=== PATIENT | female | born 1980 | race Caucasian/White ===

== ENCOUNTER 2018-06-28 16:12 | Outpatient (REF) | payer BC, SELFPAY ==
--- NOTE | 2018-06-28 16:00 | PAPFT_PTH ---
PATIENT: Christiano Santos LOC: [facility] U#:[id number] AGE/SX: 38/F ROOM: RE06/28/[address]: RODY Wheat : 1980 BED: DIS: 06/28/2018 SPEC #: [id number] RECD: 06/28/18 17:56 STATUS: NEIDA RESiomara #: [id number] HUONG: 06/28/18 16:[address]: Soha Baires DEPT: [facility] Cytology RECD BY: Kennedi Pozo ENTERED: 06/28/18 17:57 SP TYPE: PAPFT OTHR DR: Celeste Quesada Tissues: 1 - CX/ENDOCX FOR PAP SMEARS Procedures: PAP THIN PREP/UVM Screening HPV DNA PROBE Comments: [id number]
[2018-06-30 14:45] LABS: Chlamydia Result Negative; GC Result Negative; Specimen Description CERVIX
== END 2018-06-28 16:32 ==
LOC: LBN 16:12
PROVIDERS: PCP Nurse Practitioner Family; Visit Provider Nurse Practitioner Family
DX: Z11.3 Encounter for screening for infections with a predominantly sexual mode of transmission (principal); Z12.4 Encounter for screening for malignant neoplasm of cervix; Z11.51 Encounter for screening for human papillomavirus (HPV)
CPT/HCPCS: 87491; 87591; 88142; 87624

== ENCOUNTER 2018-11-24 01:41 | Outpatient (CLI) | payer BC, SELFPAY ==
[2018-11-24 07:39] LABS: Abs Immature Grans 0.08 k/cumm (0.0-0.09); Absolute Basophil Count 0.04 k/cumm (0.0-0.2); Absolute Lymphocyte Count 2.33 k/cumm (1.2-3.4); Absolute Monocyte Count 0.67 k/cumm (0.11-0.7); Absolute Neutrophil Count 6.71 k/cumm (1.2-6.7); Basophils % 0.4; HCT 43.9 % (36.0-46.0); HGB 14.7 g/dL (12.0-15.5); Immature Grans % 0.8; Lymphocytes % 23.5; Mean Corp. HGB Concentration 33.5 g/dL (32.0-36.0); Mean Corpuscular Hemoglobin 30.2 pg (27.0-33.0); Mean Corpuscular Volume 90.1 fL (80-95); Mean Platelet Volume 9.7 fL (8.0-11.0); Monocytes % 6.7; Neutrophils % 67.6; Platelet Count 262 x1000/uL (130-400); RBC 4.87 m/cumm (4.00-5.20); RBC Distribution Width 13.5 % (11.7-14.6); White Blood Cell Count 9.93 k/cumm (4.4-10.8)
[2018-11-24 09:28] LABS: ALT 27 U/L (12-78); AST 13 U/L (15-37); Albumin 3.7 g/dL (3.4-5.0); Alkaline Phosphatase 71 U/L (46-116); Anion Gap 11.5 mmol/L (3-11); BUN 10 mg/dL (7-18); Bilirubin, Total 0.5 mg/dL (0.2-1.0); CO2 24.5 mmol/L (21.0-32.0); CREATININE 0.89 mg/dL (0.55-1.02); Calcium 8.7 mg/dL (8.5-10.1); Calculated LDL 147 mg/dL; Chloride 101 mmol/L (98-107); Cholesterol 203 mg/dL (50-200); Glucose 96 mg/dL (70-100); HDL Cholesterol 42 mg/dL (40-60); Potassium 4.4 mmol/L (3.5-5.1); Sodium 137 mmol/L (136-145); TSH (W/Ref FT4) 3.73 uIU/mL (0.36-3.74); Total Protein 7.1 g/dL (6.4-8.2); Triglyceride 71 mg/dL (30-150)
== END 2018-11-24 02:01 ==
PROVIDERS: PCP Physician Assistant Medical; Visit Provider Physician Assistant Medical
DX: I10 Essential (primary) hypertension (principal)
CPT/HCPCS: 36415; 80053; 80061; 83721; 84443; 85025

== ENCOUNTER 2019-01-14 07:12 | Outpatient (CLI) | payer BC, SELFPAY ==
[2019-01-14 08:43] LABS: FREE T4 0.93 ng/dL (0.76-1.46); TSH 3.04 uIU/mL (0.36-3.74)
[2019-01-14 17:19] LABS: T3, Total 140 ng/dl (97-169)
== END 2019-01-14 07:32 ==
PROVIDERS: PCP Physician Assistant Medical; Visit Provider Physician Assistant Medical
DX: R94.6 Abnormal results of thyroid function studies (principal)
CPT/HCPCS: 36415; 84439; 84443; 84480

== ENCOUNTER 2020-01-18 21:20 | Outpatient (REF) | payer BC, SELFPAY ==
[2020-01-18 22:00] LABS: Anion Gap 11.6 mmol/L (3-11); BUN 13 mg/dL (7-18); CO2 23.4 mmol/L (21.0-32.0); CREATININE 0.79 mg/dL (0.55-1.02); Calcium 9.5 mg/dL (8.5-10.1); Chloride 105 mmol/L (98-107); Glucose 82 mg/dL (74-106); Potassium 4.1 mmol/L (3.5-5.1); Sodium 140 mmol/L (136-145); TSH (W/Ref FT4) 5.07 uIU/mL (0.36-3.74)
[2020-01-18 22:26] LABS: FREE T4 0.91 ng/dL (0.76-1.46)
== END 2020-01-18 21:40 ==
LOC: NCHCN 21:20
PROVIDERS: PCP Physician Assistant Medical; Visit Provider Physician Assistant Medical
DX: R94.6 Abnormal results of thyroid function studies (principal); I10 Essential (primary) hypertension
CPT/HCPCS: 80048; 84439; 84443

== ENCOUNTER 2020-01-25 00:56 | Outpatient (CLI) | payer BC, SELFPAY ==
--- NOTE | 2020-01-25 17:30 | DI.MAMMO_ITS ---
EXAM: MAMMO SCREENING CLINICAL HISTORY: screening TECHNIQUE: Mammograms were interpreted according to the usual protocol including computer analysis w En[employer]grion CAD system, tomosynthesis and C-view imaging. COMPARISON: Baseline examination. FINDINGS: The breasts are composed of scattered fibroglandular densities, Breast Density category B. Left breast: No suspicious masses or suspicious microcalcifications are seen. No skin thickening or abnormal axillary lymph nodes are seen. Right breast: There is a dense spiculated mass seen in the lower inner quadrant of the right breast, in the central tissue. There are suspicious appearing pleomorphic and linear calcifications seen in the medial breast extending from anterior to posterior. IMPRESSION: BI-RADS Cat 0 - Assessment Incomplete: Need additional imaging evaluation Spot compression views of the mass and spot magnification views of the calcifications are requested f or further evaluation. Breast Density - Category B, scattered fibroglandular densities. A negative radiographic report should not delay biopsy if a dominant or clinically suspicious mass is present. Up to ten percent of cancers are not identified on mammography. A negative report may reinforce clinical impression. Adenosis and dense breasts may obscure an underlying neoplasm. False positive reports average 6 to 10%. Patient will receive a letter notifying them of these results.
== END 2020-01-25 01:16 ==
PROVIDERS: PCP Physician Assistant Medical; Visit Provider Nurse Practitioner Family
DX: Z12.31 Encounter for screening mammogram for malignant neoplasm of breast (principal); R92.1 Mammographic calcification found on diagnostic imaging of breast
CPT/HCPCS: 77063; 77067

== ENCOUNTER 2020-01-31 01:18 | Outpatient (CLI) | payer BC, SELFPAY ==
--- NOTE | 2020-01-31 | DI.US_ITS ---
EXAM: MG MAMMO SCREEN CALL BACK UNI CLINICAL HISTORY: F/U MAMMO, SPICULATED MASS LOWER INNER QUAD RT BREAST,CALCIFICATIONS TECHNIQUE: Mammograms were interpreted according to the usual protocol including computer analysis w ith CAD system, tomosynthesis and C-view imaging. COMPARISON: FINDINGS: Additional mammographic views of the right breast and right breast ultrasound are interpreted in conj unction. These examinations were obtained to evaluate mass of the right breast with irregular margin s as well as suspicious clumped microcalcifications of the right breast. Additional mammographic views confirm dense irregular breast lesion with mild spiculation measuring a bout 11 millimeters in greatest diameter in the upper inner quadrant of the right breast, this is hig hly suspicious for malignancy. Additional scattered regions of linear and pleomorphic microcalcifica tion are confirmed remote to the mammographically suspicious mass, these are located both medially an d posteriorly to the aforementioned mass. Findings as described are highly suggestive of multicentri c breast carcinoma. Breast ultrasound shows a poorly defined hypoechoic lesion measuring up to about 15 millimeters in di ameter which ultrasound a graphically as at the 12 to 1 o'clock position in the right breast, this is likely to correspond to the mammographically identified mass. There is posterior acoustic shadowing . Doppler evaluation is inconclusive with little if any increased vascularity in this area. Questionable satellite nodule also seen in the 1 o'clock position measuring about 10 millimeters in d iameter. This is mildly hypoechoic. No Doppler abnormality. Poorly defined borders. IMPRESSION: Mammographic findings highly suggestive of malignancy, likely multicentric, in the upper inner quadra nt of the right breast. Biopsy recommended. Additional evaluation with breast MRI may be considered to evaluate the possibility of additional multicentric disease. BI-RADS Category 4 - Suspicious Abnormality: Biopsy should be considered Breast Density - Category B - Scattered areas of fibroglandular density
== END 2020-01-31 01:38 ==
PROVIDERS: PCP Physician Assistant Medical; Visit Provider Nurse Practitioner Family
DX: Z12.39 Encounter for other screening for malignant neoplasm of breast (principal); N63.12 Unspecified lump in the right breast, upper inner quadrant
CPT/HCPCS: 76642; 77063; 77067

== ENCOUNTER 2020-03-14 18:45 | Outpatient (REF) | payer BC, SELFPAY ==
[2020-03-14 21:21] LABS: TSH 3.13 uIU/mL (0.36-3.74)
== END 2020-03-14 19:05 ==
LOC: NCHCN 18:45
PROVIDERS: PCP Physician Assistant Medical; Visit Provider Physician Assistant Medical
DX: R94.6 Abnormal results of thyroid function studies (principal)
CPT/HCPCS: 84443

== ENCOUNTER 2020-07-02 03:43 | Outpatient (CLI) | payer OTHER, SELFPAY ==
[2020-07-02 10:16] LABS: Source Nasal/Nares
[2020-07-02 13:59] LABS: COVID-19 PCR Negative (Negative)
== END 2020-07-02 03:44 | disposition home or self-care (01) ==
LOC: LBO 03:43
PROVIDERS: PCP Physician Assistant Medical; Visit Provider Surgery
DX: Z20.822 Contact with and (suspected) exposure to COVID-19 (principal); Z01.818 Encounter for other preprocedural examination
CPT/HCPCS: 87635

== ENCOUNTER 2020-07-03 08:06 | Day surgery (SDC) | payer OTHER, SELFPAY ==
--- NOTE | 2020-07-03 | DI.RAD_ITS ---
EXAM: XR PORTABLE CHEST AP POST LINE CLINICAL HISTORY: line TECHNIQUE: 2D digital imaging was performed. COMPARISON: RF LINE PLACEMENT OR from 07/03/2020 FINDINGS: LUNGS: Clear. No pleural abnormality seen. HEART: Normal. MEDIASTINUM: Normal. BONES: Unremarkable. A port has been placed via the left subclavian. The tip lies in the lower SVC. Surgical clips are n oted over the right lower lung field. IMPRESSION: Satisfactory port placement. No acute pulmonary findings. DATA REPOSITORY: RADIATION DOSE DELIVERED:
[2020-07-03 08:29] VITALS: BP 169/99; PULSE 104; RESP 18; TEMP 36.6; O2SAT 100
[2020-07-03] MEDS: Acetaminophen 500 MG TAB 1000 MG PO (08:39)
[2020-07-03] MEDS: Lactated Ringers 1,000 ML 80 ML IV (09:00)
--- NOTE | 2020-07-03 09:16 | HPE_ITS ---
Date of service: 07/03/20 Time of Service: 09:16 Assessment and Plan Assessment and plan (1) Breast cancer, right breast: Status: Acute Assessment and plan: The pt. is seen in consultation for central venous access placement at the request of PCP for venous access. PMHx, PSHx, social habits, medications, and allergies are all reviewed in [facility]. -No problems with anesthesia or local anesthesethics in the past. Prior broken collarbone: no Prior head/neck surgery: no Pt has had a central line in the past: no Pt currently is currently undergoing chemo/XRT:no Pt has had previous central access catheter:no Pt is handed: right Line will be placed:left Right sided breast CA Review of Systems Constitutional: Negative for anorexia, weight loss, weight gain , fever , chills , sweating and fatigue . Eyes: Negative for contacts/glasses, visual disturbance, irritation , redness and icterus Ears, nose, mouth, throat, and face: Negative for hearing loss, nasal congestion, snoring, sore mouth, sore throat, hoarseness and voice change . Able to open mouth/jaw completely; no TMJ. No history of difficult airway Respiratory: Negative for cough, sputum production, hemoptysis and wheezing . Cardiovascular: Negative for chest discomfort, palpitations and lightheadedness, shortness of breathe Gastrointestinal: Negative for dysphagia , dyspepsia , nausea , vomiting , change in bowel habits , melena , diarrhea , constipation , abdominal pain and jaundice. Genitourinary:Negative for dysuria and urinary incontinence . Integument/breast: Negative for skin Rash No history of keliods/hypertrophic scarring. Hematologic/lymphatic: Negative for easy bruising , bleeding and lymphadenopathy . Not on blood thiners Musculoskeletal:Negative for myalgias, arthralgias , stiff joints, back pain and muscle weakness. Neurological: Negative for headaches, dizziness , seizures , paresthesia, gait problems and weakness. Endocrine: Negative for thyroid disease or diabetes mellitus . Allergic/Immunologic: Negative for anaphylaxis . PHYSICAL EXAM GENERAL APPEARANCE: Alert, healthy appearance, oriented, in no acute distress SKIN: No hyperpigmentation, vitiligo, or suspicious lesions HYDRATION: Well hydrated HEAD, EYES, EARS, NECK, AND THROAT: Head is normocephalic, pupils equal, round, reactive to light and accommodation, ocular movement intact, sclera clear and no jaundice. Dentition intact. NECK: Supple, no lymphadenopathy, no thyromegaly. Trachea midline. LUNGS: normal respiration, clear to auscultation HEART: Regular rate and rhythm, normal heart sounds, no murmur EXTREMITY: No edema or cyanosis, foot pulses intact ABDOMEN: No hepatosplenomegaly, non tender to palpation, no masses or distention, no hernias. Normal bowel sounds. NEURO: CN: Intact. Sensory motor grossly intact. No gait disturbances. All associated labs and radiologic studies are reviewed in [facility] I discussed placing a vascular access device with the pt and S.O./family, and the alternatives to the procedure. We discussed what the port would look like, and how to take care of the port at home and the limitations that it does impose on lifestyle. We discussed that is does need to be flushed monthly when not being actively used. We discussed how the tube is placed in surgery and how it is removed. We discussed daily maintenance and care. Care of the port was also reviewed in detailed. Risk of port placement include but are not limited to: Bleeding, infection, damage to vein, artery, nerve or lung, aspiration and pneumonia, respiratory distress or airway obstruction, complications of anesthesia. If pneumothorax occurs, may need to have a chest tube. The lines can become thrombosed and may need to be changed periodically. The pt was receive pre-op hydration and antibiotics. The patient should be off asa/NSAID/coumadin/Plavix/anticoagulants prior to the exam. History of Present Illness Consults Consult date: 07/03/20 Narrative: Right sided breast cancer. s/p b/l mastectomy and reconstruction. Ready to start chemo. No xrt. non smoker. R sided. No numbness or swelling in arm [facility] Medical History (Updated 07/03/20 @ 09:17 by Aleshia Mujica DO) Breast cancer History of asthma IUD surveillance (12/04/15) removed per patient. Personal history of cervical dysplasia (05/23/11) 1998 ANTON III Surgical History Cervical Procedure LEEP 1998 section (~1997) Cholecystectomy (~2004) H/O partial mastectomy Family History Mother Hyperlipidemia Father Heart disease Social History (Updated 06/28/18 @ 16:07 by Soha Baires NP) Smoking/Tobacco Use Status: Current every day Tobacco Type: cigarettes Quit status: considering quitting Counseling given: other (informed on Quit program) Smoking risk assessment performed?: Yes Alcohol Intake: never Substance use type: does not use current occupation: [employer] Do you feel safe at home: Yes Do you feel safe in your relationship?: Yes Female Reproductive History Menstrual control method: progesterone injection History History 2 Para 2 Hx # Term Pregnancies Multiple births Hx # Pregnancies Ectopic pregnancies AB induced Hx Number of Living Children AB spontaneous Meds Home Medications and Allergies Allergies Allergy/AdvReac Type Severity Reaction Status Date / Time bupropion AdvReac Mild HEADACHE Verified 07/03/20 08:39 Home Medications Medication Instructions Recorded Confirmed Type lisinopril 10 mg tablet 10 mg PO DAILY 01/03/20 07/03/20 History levothyroxine 25 mcg tablet 25 mcg PO DAILY 01/31/20 07/03/20 History eypkpsnmexg-ezemkmuzs-asqvurwn 1 inh INHALATION DAILY 07/02/20 07/03/20 History [Trelegy Ellipta] ibuprofen 200 mg PO Q6H PRN 07/02/20 07/03/20 History tamoxifen 20 mg PO DAILY 07/02/20 07/03/20 History Results Last Vital Signs Temp 36.6 C 07/03/20 08:29 Pulse 104 H 07/03/20 08:29 Resp 18 07/03/20 08:29 BP 169/99 H 07/03/20 08:29 Pulse Ox 100 07/03/20 08:29 COVID-19 Screening Have you, or household traveled for leisure in last 14 days?: No Had IN PERSON contact w/suspected or confirmed C-19 person: No
[2020-07-03] MEDS: ceFAZolin 2 GM/50 ML BAG IVPB (11:04)
--- NOTE | 2020-07-03 11:25 | DI.RAD_ITS ---
EXAM: RF LINE PLACEMENT OR CLINICAL HISTORY: chemotherapy. TECHNIQUE: 2D and realtime digital imaging was performed. COMPARISON: No exams were available for comparison FINDINGS: Hard copy image shows placement of a central venous catheter via the left subclavian. The tip projec ts in the lower SVC. Please see procedure note for details. RADIATION DOSE DELIVERED: Fluoro time 3.1 seconds. Fluoro dose 0.53 mGy.
[2020-07-03] MEDS: Normal Saline 50 ML 10 ML (11:27)
[2020-07-03] MEDS: Heparin 500 UNITS/5 ML SYRINGE (11:27)
[2020-07-03] MEDS: Ketorolac 15 MG/ML VIAL IVP (12:07)
[2020-07-03 12:23] VITALS: BP 133/65; PULSE 83; RESP 16; TEMP 36.6; O2SAT 98
--- NOTE | 2020-07-03 12:33 | W.PM.DSUDISC ---
Discharge Plan Disposition Patient Disposition: HOME Condition: Good Discharge Details Reason For Visit: left power port Attending Provider: Aleshia Mujica Primary Care Provider: Paula Guthrie Home Meds and New Rx's Prescriptions: No Action levothyroxine 25 mcg tablet 25 mcg PO DAILY RF: 0 lisinopril 10 mg tablet 10 mg PO DAILY RF: 0 tamoxifen 20 mg Tablet 20 mg PO DAILY RF: 0 Trelegy Ellipta 100-62.5-25 mcg Blister With Device 1 inh INHALATION DAILY RF: 0 ibuprofen 200 mg Capsule 200 mg PO Q6H PRNRF: 0 Discharge Instructions Activity:: see above Remove Dressings/Wound Care:: 24 hours Shower/Bathe:: 24 hours Diet:: As Tolerated Discharge Orders Discharge Orders: Discharge Order (Routine); Ordered 07/03/20 Ordered By: Aleshia Mujica DS: Diagnosis Discharge Diagnosis (1) Breast cancer, right breast: Status: Acute
[2020-07-03 12:49] VITALS: BP 143/58; PULSE 82; RESP 16; TEMP 36.5; O2SAT 100
--- NOTE | 2020-07-03 19:47 | ROE_ITS ---
Date of service: 07/03/20 Time of Service: 11:00 Operative Note Operative Note DATE OF PROCEDURE: 07/03/20 PRE-OP DIAGNOSIS: r breast cancer /need for central venous access for chemo POST-OP DIAGNOSIS: other PROCEDURE: left power port palcement - subclavian SURGEON: Aleshia Mujica ANESTHESIA TYPE: Local By Surgeon and General:No Airway Refer to Anesthesia Record ESTIMATED BLOOD LOSS: 3 PATHOLOGY: none sent Patient was transported to: same day Procedure Description: CONSENT: Indications, risks, and benefits were explained at length. Informed consent is obtained from the patient explaining the risk, benefits and alternatives to the procedure including but not limited to: bleeding/infection/ PTX/damage to vein/artery/nerve (requiring further surgery), reaction to anesthesia, thrombosis or infection requiring removal, scarring, and other untold complications PROCEDURE SUMMARY: The patient is brought to the operative suite, and placed in the supine position. The patient is prepped and draped in the usual sterile fashion. She did receive preOp antibiotic. A time out was performed. The patient was placed in Trendelenburg position. The left chest region was prepped using chlorhexidine scrub and draped in sterile fashion using a full drape and sterile probe cover employed. Anesthesia was achieved with 30cc 1% lidocaine. The introducer needle was inserted approximately two centimeters lateral to and 1 cm inferior to the normal curvature of the patient's clavicle. Venous blood was withdrawn. The syringe was removed and a guidewire was advanced into the introducer needle. A small incision was made at the skin surface with a scalpel and the introducer needle was exchanged for a dilator and sheath over the guidewire. Proper positioning was ensured w/ fluoroscopy. After appropriate dilation was obtained, the dilator and guidewire are exchanged over the wire for a power port catheter. The dilator and guidewire are removed. Proper positioning is again assured by fluoroscopy. The tear away sheath is than removed. The incision is than extended w/ a #12 blade to create a 1? incision that encompasses the catheter. I subcutaneous pocket is created using Metzenbaum scissors. Electrocautery is used to provide hemostasis. The catheter is attached to the hub and secured. The hub is sewn to the anterior chest wall using 2-0 prolene. There is no bleeding at the time of closure. The pocket is irrigated. The catheter is accessed. There is dark red venous return of blood. The catheter is flushed w/ heparinized saline per protocol. The incision is closed with 2-0 moncryl in two layers. Steri tapes and sterile pressure dressings are applied. The patient tolerated the procedure without any hemodynamic compromise. Post- procedure chest x-ray is pending at this time. The patient tolerated the procedure well without complication and transferred to the recovery room in stable condition.
== END 2020-07-03 13:15 | disposition home or self-care (01) ==
PROVIDERS: PCP Physician Assistant Medical; Visit Provider Surgery
PROC: (CPT 36561; principal; 2020-07-03 10:45)
DX: C50.911 Malignant neoplasm of unspecified site of right female breast (principal)
CPT/HCPCS: 36561; 71045; 77001; 81025; 99221; C1788; J0690; J1885; J2001; J2250; J2704

== ENCOUNTER 2020-07-04 02:30 | Outpatient (RCR) | payer OTHER, SELFPAY ==
[2020-07-04] MEDS: Normal Saline Flush 10 ML SYR IVP (08:40)
[2020-07-04 08:56] LABS: Abs Immature Grans 0.04 10^3/uL (0.0-0.06); Absolute Basophil Count 0.05 10^3/uL (0.0-0.2); Absolute Eosinophil Count 0.05 10^3/uL (0.0-0.7); Basophils % 0.5; Eosinophils % 0.5; HCT 40.2 % (36.0-46.0); HGB 13.5 g/dL (11.2-15.7); Immature Grans % 0.4; Lymphocytes % 23.1; MCH 30.1 pg (27.0-33.0); MCHC 33.6 % (32.0-36.0); MCV 89.5 fL (80-95); MPV 9.5 fL (8.0-11.0); Monocytes % 5.2; Neutrophils % 70.3; Nucleated RBC 0 %; Platelet Count 229 10^3/uL (130-400); RBC 4.49 10^6/uL (3.93-5.22); RDW 12.7 % (11.7-14.6); RDW-SD 41.7 fL; WBC 9.54 10^3/uL (4.4-10.8)
[2020-07-04 09:20] LABS: ALT 33 U/L (14-59); AST 16 U/L (15-37); Albumin 3.9 g/dL (3.4-5.0); Alkaline Phosphatase 65 U/L (46-116); Anion Gap 10.6 mmol/L (3-11); BUN 9 mg/dL (7-18); Bilirubin, Total 0.5 mg/dL (0.2-1.0); CO2 24.4 mmol/L (21.0-32.0); CREATININE 0.9 mg/dL (0.55-1.02); Calcium 8.8 mg/dL (8.5-10.1); Chloride 102 mmol/L (98-107); Glucose 121 mg/dL (74-106); Potassium 3.8 mmol/L (3.5-5.1); Sodium 137 mmol/L (136-145); Total Protein 7.6 g/dL (6.4-8.2)
== END 2020-07-04 23:59 | disposition home or self-care (01) ==
LOC: INF 02:30
PROVIDERS: PCP Physician Assistant Medical; Visit Provider Internal Medicine Medical Oncology
DX: C50.911 Malignant neoplasm of unspecified site of right female breast (principal); Z17.0 Estrogen receptor positive status [ER+]; Z45.2 Encounter for adjustment and management of vascular access device
CPT/HCPCS: 36591; 80053; 85025

== ENCOUNTER 2020-07-31 02:36 | Outpatient (RCR) | payer OTHER, SELFPAY ==
[2020-07-17] MEDS: Normal Saline Flush 10 ML SYR IVP (10:22)
[2020-07-17 10:25] LABS: HCT 37.4 % (36.0-46.0); HGB 12.6 g/dL (11.2-15.7); MCH 30.3 pg (27.0-33.0); MCHC 33.7 % (32.0-36.0); MCV 89.9 fL (80-95); MPV 9.2 fL (8.0-11.0); Nucleated RBC 0 %; RBC 4.16 10^6/uL (3.93-5.22); RDW 12.3 % (11.7-14.6); RDW-SD 39.4 fL; WBC 9.17 10^3/uL (4.4-10.8)
[2020-07-17 10:44] LABS: ALT 29 U/L (14-59); AST 14 U/L (15-37); Albumin 3.9 g/dL (3.4-5.0); Alkaline Phosphatase 81 U/L (46-116); Anion Gap 8.8 mmol/L (3-11); BUN 6 mg/dL (7-18); CO2 27.2 mmol/L (21.0-32.0); CREATININE 0.8 mg/dL (0.55-1.02); Calcium 8.8 mg/dL (8.5-10.1); Chloride 104 mmol/L (98-107); Glucose 103 mg/dL (74-106); Sodium 140 mmol/L (136-145); Total Protein 7.5 g/dL (6.4-8.2)
[2020-07-17 10:54] LABS: Absolute Lymphocyte Count 2.66 10^3/uL (1.2-3.4); Absolute Monocyte Count 0.28 10^3/uL (0.1-0.8); Absolute Neutrophil Count 4.31 10^3/uL (1.2-6.7); Atypical Lymphocytes % 4; Bands % 9; Bilirubin, Total < 0.1 mg/dL (0.2-1.0)
[2020-07-17 10:55] LABS: Diff Comment Manual Differential; Metamyelocytes % 3; Myelocytes % 17; Platelet Count 215 10^3/uL (130-400); Promyelocytes % 1
[2020-07-17 10:56] LABS: Polychromasia Present
[2020-07-31] MEDS: Normal Saline Flush 10 ML SYR IVP (10:31)
[2020-07-31 10:32] LABS: Abs Immature Grans 2.78 10^3/uL (0.0-0.06); HCT 36.7 % (36.0-46.0); MCH 29.5 pg (27.0-33.0); MCHC 32.7 % (32.0-36.0); MCV 90.2 fL (80-95); MPV 8.6 fL (8.0-11.0); Nucleated RBC 0 %; Platelet Count 190 10^3/uL (130-400); RBC 4.07 10^6/uL (3.93-5.22); RDW-SD 40.7 fL; WBC 10.42 10^3/uL (4.4-10.8)
[2020-07-31 10:58] LABS: Absolute Basophil Count 0.21 10^3/uL (0.0-0.2); Absolute Lymphocyte Count 2.61 10^3/uL (1.2-3.4); Absolute Monocyte Count 1.35 10^3/uL (0.1-0.8); Absolute Neutrophil Count 4.79 10^3/uL (1.2-6.7); Bands % 3; Metamyelocytes % 4; Myelocytes % 8; Promyelocytes % 1
[2020-07-31 10:59] LABS: Diff Comment Manual Differential; Polychromasia Present
[2020-07-31 11:00] LABS: ALT 30 U/L (14-59); AST 17 U/L (15-37); Albumin 3.8 g/dL (3.4-5.0); Alkaline Phosphatase 84 U/L (46-116); Anion Gap 11.9 mmol/L (3-11); BUN 6 mg/dL (7-18); Bilirubin, Total 0.1 mg/dL (0.2-1.0); CO2 24.1 mmol/L (21.0-32.0); CREATININE 0.8 mg/dL (0.55-1.02); Calcium 8.9 mg/dL (8.5-10.1); Chloride 102 mmol/L (98-107); Glucose 122 mg/dL (74-106); Potassium 3.8 mmol/L (3.5-5.1); Sodium 138 mmol/L (136-145); Total Protein 7.3 g/dL (6.4-8.2)
== END 2020-08-03 23:59 | disposition home or self-care (01) ==
LOC: INF 02:36
PROVIDERS: PCP Physician Assistant Medical; Visit Provider Internal Medicine Medical Oncology
DX: C50.911 Malignant neoplasm of unspecified site of right female breast (principal); Z17.0 Estrogen receptor positive status [ER+]; Z45.2 Encounter for adjustment and management of vascular access device
CPT/HCPCS: 36591; 80053; 85025

== ENCOUNTER 2020-08-28 02:46 | Outpatient (RCR) | payer OTHER, SELFPAY ==
[2020-08-20] MEDS: Normal Saline Flush 10 ML SYR IVP (15:06)
[2020-08-20] MEDS: Heparin 500 UNITS/5 ML SYRINGE IV (15:06)
[2020-08-20 15:10] LABS: Abs Immature Grans 0.28 10^3/uL (0.0-0.06); Absolute Eosinophil Count 0.08 10^3/uL (0.0-0.7); Absolute Lymphocyte Count 1.92 10^3/uL (1.2-3.4); Absolute Monocyte Count 1.15 10^3/uL (0.1-0.8); Absolute Neutrophil Count 8.61 10^3/uL (1.2-6.7); Basophils % 0.8; Eosinophils % 0.7; HGB 11.2 g/dL (11.2-15.7); Immature Grans % 2.3; Lymphocytes % 15.8; MCH 30.2 pg (27.0-33.0); MCHC 32.9 % (32.0-36.0); MCV 91.6 fL (80-95); Monocytes % 9.5; Neutrophils % 70.9; Nucleated RBC 0 %; Platelet Count 272 10^3/uL (130-400); RBC 3.71 10^6/uL (3.93-5.22); RDW 15.5 % (11.7-14.6); RDW-SD 51.4 fL; WBC 12.14 10^3/uL (4.4-10.8)
[2020-08-20 15:24] LABS: ALT 38 U/L (14-59); AST 24 U/L (15-37); Albumin 3.7 g/dL (3.4-5.0); Alkaline Phosphatase 66 U/L (46-116); Anion Gap 8.4 mmol/L (3-11); BUN 5 mg/dL (7-18); Bilirubin, Total 0.2 mg/dL (0.2-1.0); CO2 25.6 mmol/L (21.0-32.0); CREATININE 0.8 mg/dL (0.55-1.02); Calcium 8.4 mg/dL (8.5-10.1); Chloride 106 mmol/L (98-107); Glucose 97 mg/dL (74-106); Potassium 3.8 mmol/L (3.5-5.1); Sodium 140 mmol/L (136-145)
== END 2020-09-03 23:59 | disposition home or self-care (01) ==
LOC: INF 02:46
PROVIDERS: PCP Physician Assistant Medical; Visit Provider Internal Medicine Medical Oncology
DX: C50.911 Malignant neoplasm of unspecified site of right female breast (principal); Z17.0 Estrogen receptor positive status [ER+]; Z45.2 Encounter for adjustment and management of vascular access device
CPT/HCPCS: 36591; 80053; 85025

== ENCOUNTER 2020-08-30 01:22 | Outpatient (CLI) | payer OTHER, SELFPAY ==
--- NOTE | 2020-08-30 | DI.US_ITS ---
APPROVED REPORT EXAM: Comprehensive 2D, Doppler, and color-flow Echocardiogram Patient Location: Out-Patient Telephone Cleaner: Nancy Galvan RDCS (AE) Indications: Right breast cancer, Chemotherapy Other Information Study Quality: Adequate Conclusion Left Ventricle : The left ventricle is normal size. The left ventricular systolic function is normal. The left ventricular ejection fraction is within the normal range. There is normal left ventricular wall thickness. There is normal LV segmental wall motion. The left ventricular diastolic function is normal. LVEF is 59%. Global longitudinal strain is -16.5%. Right Ventricle : The right ventricle is normal size. The right ventricular systolic function is norm al. The RVSP is 29.6 mmHg. Atria : The left atrium size is normal. The right atrium size is normal. Mitral Valve : The mitral valve is normal in structure. Trace to mild mitral regurgitation. No eviden ce of mitral valve stenosis. Great Vessels : The aortic root is normal in size. The ascending aorta is normal in size. Aortic arch is not well visualized. IVC is normal in size and collapses >50% with inspiration. Please see remainder of study for further details. Wall motion Left Ventricle The left ventricle is normal size. The left ventricular systolic function is normal. The left ventric ular ejection fraction is within the normal range. There is normal left ventricular wall thickness. T here is normal LV segmental wall motion. The left ventricular diastolic function is normal. There is no ventricular septal defect visualized. LVEF is 59%. Global longitudinal strain is -16.5%. Right Ventricle The right ventricle is normal size. The right ventricular systolic function is normal. The RVSP is 29 .6 mmHg. Atria The left atrium size is normal. The right atrium size is normal. The interatrial septum is intact wit h no evidence for an atrial septal defect. Aortic Valve The aortic valve is normal in structure. Aortic valve is trileaflet. There is no aortic valvular sten osis. No aortic regurgitation is present. Mitral Valve The mitral valve is normal in structure. No evidence of mitral valve stenosis. Trace to mild mitral r egurgitation. Tricuspid Valve The tricuspid valve is normal in structure. There is no tricuspid valve stenosis. Trace tricuspid reg urgitation. Pulmonic Valve The pulmonary valve is normal in structure. There is no pulmonic valvular stenosis. There is no pulmo kely valvular regurgitation. Great Vessels The aortic root is normal in size. The ascending aorta is normal in size. Aortic arch is not well vis ualized. IVC is normal in size and collapses >50% with inspiration. Pericardium There is no pericardial effusion. 2D Dimensions IVSD d PLAX 0.83 cm F: 0.6-1.0 LV Vol A2C d MOD 97.0 mL LVPW d PLAX 0.88 cm F: 0.6 - 1.0 LV Vol A4C d MOD 118.9 mL LVID d PLAX 5.16 cm F: 3.8 - 5.2 LA vol/ BSA A4C s A-L 29.3 mL/m2 LVDs 3.45 cm F: 2.2 - 3.5 LA Area A4C s MOD 21.01 cm2 Ao Root d 2.61 cm F: 2.7 - 3.3 LV EF A4C MOD 59.5 % RA Area A4C 12.74 cm2 LV EF A2C MOD 59.8 % RA Vol/ BSA A4C s A-L 14.4 mL/m2 LV EF Biplane MOD 59.1 % Ao Asc Diam d 3.09 cm F: 2.3 - 3.1 SV 65.43 mL LV EF Teichholz 61.1 % SV Index 29.85 mL/m2 LVEF (Lambert's) 59.12 % F: 54 - 74 LV Volume 80.58 mL F: 46 - 106 LV Volume Index 36.79 mL/m2 F: 29 - 61 LV Vol Biplane MOD 110.7 mL FS 32.90 % M-Mode TAPSE 2.55 cm (M/F) >1.7 LV Diastology MV E' medial 0.113 (>0.07 m/s) E/A Ratio 1.1 LV E/e MED 7.30 (<14) MV E Vmax 0.83 (0.4-1.3 m/s) MV E' lateral 0.119 (>0.1 m/s) MV A Vmax 0.75 (0.4-1.3 m/s) LV E/e LAT 6.95 (<14) MV E/A Ratio 1.08 MV E/E' medial 7.34 MV E/E' lateral 6.98 Aortic Valve LVOT Area 3.01 cm2 AoV Area Vmax 2.44 cm2 LVOT Vmax 1.17 m/s AoV Area/ BSA (Vmax) 1.11 cm2/m2 LVOT Mean Scooby. 0.79 m/s DANNY Mean Scooby. 2.42 cm2 LVOT Peak Grad 5.5 mmHg DANNY Mean Scooby. Index 1.10 cm2/m2 LVOT Mean Grad 2.9 mmHg LVOT VTI 0.234 m LVOT Diam s 1.95 cm AoV Vmax 1.44 m/s Velocity Ratio 0.81 AoV Mean Scooby. 0.98 m/s AoV Peak Grad 8.3 mmHg LVOT SV 70.44 mL AoV Mean Grad 4.6 mmHg AoV VTI 0.246 m AoV Area VTI 2.86 cm2 AoV Area/ BSA (VTI) 1.31 cm/m2 Mitral Valve MV DT 196 (160-240 msec) MV PHT 57 msec MV Area PHT 3.87 cm2 MV VTI 0.248 m MV VTI Annulus 0.244 m MV Area VTI 2.80 (4.0-6.0 cm2) Pulmonary Valve PV Vmax 1.26 (0.5-1.5 m/s) RVOT Peak Gr. 6.61 mmHg PV Peak Grad 6.4 mmHg RVOT Mean Gr. 3.35 mmHg PV Mean Grad 3.4 mmHg RVOT VTI 0.216 m PV VTI 0.230 m RVOT Vmax 1.29 m/s Tricuspid Valve TR Peak Grad 26.6 mmHg TR Vmax 2.58 m/s RA Pressure 3.00 mmHg RVSP (TR) 29.6 mmHg
== END 2020-08-30 01:42 ==
PROVIDERS: PCP Physician Assistant Medical; Visit Provider Nurse Practitioner Adult Health
DX: C50.911 Malignant neoplasm of unspecified site of right female breast (principal); Z17.0 Estrogen receptor positive status [ER+]; Z79.899 Other long term (current) drug therapy; K21.9 Gastro-esophageal reflux disease without esophagitis; I34.0 Nonrheumatic mitral (valve) insufficiency
CPT/HCPCS: 93306

== ENCOUNTER 2020-10-02 02:37 | Outpatient (RCR) | payer OTHER, SELFPAY ==
[2020-09-05] MEDS: Normal Saline Flush 10 ML SYR IVP (08:05)
[2020-09-05 08:09] LABS: Abs Immature Grans 0.84 10^3/uL (0.0-0.06); Absolute Eosinophil Count 0.08 10^3/uL (0.0-0.7); HCT 34.1 % (36.0-46.0); HGB 11.3 g/dL (11.2-15.7); MCH 30.5 pg (27.0-33.0); MCHC 33.1 % (32.0-36.0); MCV 92.2 fL (80-95); MPV 9.1 fL (8.0-11.0); Nucleated RBC 0 %; Platelet Count 212 10^3/uL (130-400); RDW 16.3 % (11.7-14.6); RDW-SD 54.4 fL; WBC 8.09 10^3/uL (4.4-10.8)
[2020-09-05 08:23] LABS: ALT 29 U/L (14-59); AST 13 U/L (15-37); Albumin 3.6 g/dL (3.4-5.0); Alkaline Phosphatase 81 U/L (46-116); Anion Gap 9.2 mmol/L (3-11); BUN 8 mg/dL (7-18); Bilirubin, Total 0.2 mg/dL (0.2-1.0); CO2 25.8 mmol/L (21.0-32.0); CREATININE 0.8 mg/dL (0.55-1.02); Calcium 9.1 mg/dL (8.5-10.1); Chloride 106 mmol/L (98-107); Glucose 104 mg/dL (74-106); Potassium 4.2 mmol/L (3.5-5.1); Sodium 141 mmol/L (136-145); Total Protein 7.1 g/dL (6.4-8.2)
[2020-09-05 08:28] LABS: Absolute Basophil Count 0.08 10^3/uL (0.0-0.2); Absolute Monocyte Count 1.05 10^3/uL (0.1-0.8); Absolute Neutrophil Count 4.61 10^3/uL (1.2-6.7); Bands % 4; Diff Comment Manual Differential; Metamyelocytes % 2; Myelocytes % 5
[2020-09-05 08:29] LABS: Polychromasia Present
[2020-09-18 09:08] LABS: HCT 34.4 % (36.0-46.0); HGB 11.3 g/dL (11.2-15.7); MCH 30.7 pg (27.0-33.0); MCHC 32.8 % (32.0-36.0); MCV 93.5 fL (80-95); MPV 9.7 fL (8.0-11.0); Nucleated RBC 0 %; Platelet Count 193 10^3/uL (130-400); RBC 3.68 10^6/uL (3.93-5.22); RDW 17.3 % (11.7-14.6); RDW-SD 57.6 fL; WBC 16.64 10^3/uL (4.4-10.8)
[2020-09-18] MEDS: Normal Saline Flush 10 ML SYR IVP (09:15)
[2020-09-18 09:29] LABS: ALT 53 U/L (14-59); AST 23 U/L (15-37); Albumin 3.8 g/dL (3.4-5.0); Alkaline Phosphatase 119 U/L (46-116); Anion Gap 11.1 mmol/L (3-11); BUN 11 mg/dL (7-18); Bilirubin, Total 0.3 mg/dL (0.2-1.0); CO2 24.9 mmol/L (21.0-32.0); CREATININE 0.9 mg/dL (0.55-1.02); Calculated LDL 154 mg/dL (<100); Chloride 104 mmol/L (98-107); Cholesterol 230 mg/dL (<200); Glucose 111 mg/dL (74-106); HDL Cholesterol 43 mg/dL (40-60); Potassium 4.1 mmol/L (3.5-5.1); Sodium 140 mmol/L (136-145); TSH 2.12 uIU/mL (0.36-3.74); Total Protein 7.5 g/dL (6.4-8.2); Triglyceride 168 mg/dL (<150)
[2020-09-18 09:31] LABS: Absolute Lymphocyte Count 1.33 10^3/uL (1.2-3.4); Absolute Monocyte Count 0.83 10^3/uL (0.1-0.8); Absolute Neutrophil Count 13.81 10^3/uL (1.2-6.7); Bands % 8; Diff Comment Manual Differential; Metamyelocytes % 4; RBC Morphology Normal
[2020-10-02] MEDS: Normal Saline Flush 10 ML SYR IVP (08:53)
[2020-10-02 08:55] LABS: Abs Immature Grans 0.41 10^3/uL (0.0-0.06); Absolute Basophil Count 0.08 10^3/uL (0.0-0.2); Absolute Eosinophil Count 0.19 10^3/uL (0.0-0.7); Absolute Lymphocyte Count 1.34 10^3/uL (1.2-3.4); Absolute Monocyte Count 0.69 10^3/uL (0.1-0.8); Basophils % 0.7; Eosinophils % 1.7; HCT 34.6 % (36.0-46.0); HGB 11.5 g/dL (11.2-15.7); Immature Grans % 3.6; Lymphocytes % 11.9; MCH 31.2 pg (27.0-33.0); MCHC 33.2 % (32.0-36.0); MCV 93.8 fL (80-95); MPV 9.3 fL (8.0-11.0); Monocytes % 6.1; Nucleated RBC 0 %; Platelet Count 230 10^3/uL (130-400); RBC 3.69 10^6/uL (3.93-5.22); RDW 16.8 % (11.7-14.6); RDW-SD 57.1 fL; WBC 11.27 10^3/uL (4.4-10.8)
[2020-10-02 08:57] LABS: Absolute Neutrophil Count 8.57 10^3/uL (1.2-6.7)
[2020-10-02 09:24] LABS: ALT 40 U/L (14-59); AST 21 U/L (15-37); Albumin 3.8 g/dL (3.4-5.0); Alkaline Phosphatase 96 U/L (46-116); BUN 9 mg/dL (7-18); Bilirubin, Total 0.4 mg/dL (0.2-1.0); CREATININE 0.9 mg/dL (0.55-1.02); Calcium 9.3 mg/dL (8.5-10.1); Chloride 106 mmol/L (98-107); Glucose 103 mg/dL (74-106); Potassium 4.4 mmol/L (3.5-5.1); Sodium 142 mmol/L (136-145); Total Protein 7.5 g/dL (6.4-8.2)
== END 2020-10-03 23:59 | disposition home or self-care (01) ==
LOC: INF 02:37
PROVIDERS: PCP Physician Assistant Medical; Visit Provider Internal Medicine Medical Oncology
DX: C50.911 Malignant neoplasm of unspecified site of right female breast (principal); Z17.0 Estrogen receptor positive status [ER+]; Z45.2 Encounter for adjustment and management of vascular access device
CPT/HCPCS: 36591; 80053; 80061; 84443; 85025

== ENCOUNTER 2020-10-16 02:55 | Outpatient (RCR) | payer OTHER, SELFPAY ==
[2020-10-16] MEDS: Normal Saline Flush 10 ML SYR IVP (09:41)
[2020-10-16 10:06] LABS: Abs Immature Grans 1.15 10^3/uL (0.0-0.06); HCT 34.7 % (36.0-46.0); HGB 11.2 g/dL (11.2-15.7); MCH 31.6 pg (27.0-33.0); MCHC 32.3 % (32.0-36.0); MPV 9.9 fL (8.0-11.0); Nucleated RBC 0 %; Platelet Count 217 10^3/uL (130-400); RBC 3.54 10^6/uL (3.93-5.22); RDW 15.9 % (11.7-14.6); RDW-SD 57.6 fL; WBC 15.92 10^3/uL (4.4-10.8)
[2020-10-16 10:24] LABS: ALT 36 U/L (14-59); AST 13 U/L (15-37); Albumin 3.7 g/dL (3.4-5.0); Alkaline Phosphatase 105 U/L (46-116); Anion Gap 10.7 mmol/L (3-11); BUN 8 mg/dL (7-18); Bilirubin, Total 0.2 mg/dL (0.2-1.0); CO2 24.3 mmol/L (21.0-32.0); CREATININE 0.8 mg/dL (0.55-1.02); Calcium 9.2 mg/dL (8.5-10.1); Chloride 105 mmol/L (98-107); Glucose 106 mg/dL (74-106); Potassium 4.2 mmol/L (3.5-5.1); Sodium 140 mmol/L (136-145); Total Protein 7.3 g/dL (6.4-8.2)
[2020-10-16 10:25] LABS: Absolute Eosinophil Count 0.16 10^3/uL (0.0-0.7); Absolute Lymphocyte Count 2.71 10^3/uL (1.2-3.4); Absolute Neutrophil Count 11.46 10^3/uL (1.2-6.7); Atypical Lymphocytes % 2
[2020-10-16 10:26] LABS: Diff Comment Manual Differential; Metamyelocytes % 2; Myelocytes % 3; Polychromasia Present
== END 2020-11-03 23:59 | disposition home or self-care (01) ==
LOC: INF 02:55
PROVIDERS: PCP Physician Assistant Medical; Visit Provider Internal Medicine Medical Oncology
DX: C50.911 Malignant neoplasm of unspecified site of right female breast (principal); Z17.0 Estrogen receptor positive status [ER+]; Z45.2 Encounter for adjustment and management of vascular access device
CPT/HCPCS: 36591; 80053; 85025

== ENCOUNTER 2020-12-11 12:53 | Outpatient (RCR) | payer OTHER, SELFPAY ==
[2020-12-11] MEDS: Heparin 500 UNITS/5 ML SYRINGE IV (13:40)
[2020-12-11] MEDS: Normal Saline Flush 10 ML SYR IVP (13:40)
[2020-12-11 13:50] LABS: Abs Immature Grans 0.02 10^3/uL (0.0-0.06); Absolute Basophil Count 0.05 10^3/uL (0.0-0.2); Absolute Eosinophil Count 0.11 10^3/uL (0.0-0.7); Absolute Lymphocyte Count 1.91 10^3/uL (1.2-3.4); Absolute Monocyte Count 0.65 10^3/uL (0.1-0.8); Basophils % 0.5; Eosinophils % 1.2; HGB 13.1 g/dL (11.2-15.7); Immature Grans % 0.2; Lymphocytes % 20.9; MCH 30.3 pg (27.0-33.0); MCHC 32.8 % (32.0-36.0); MCV 92.6 fL (80-95); MPV 9.5 fL (8.0-11.0); Monocytes % 7.1; Neutrophils % 70.1; Nucleated RBC 0 %; Platelet Count 238 10^3/uL (130-400); RBC 4.32 10^6/uL (3.93-5.22); RDW 11.7 % (11.7-14.6); RDW-SD 39.8 fL; WBC 9.14 10^3/uL (4.4-10.8)
[2020-12-11 14:02] LABS: ALT 51 U/L (14-59); AST 29 U/L (15-37); Alkaline Phosphatase 76 U/L (46-116); Anion Gap 10.1 mmol/L (3-11); BUN 10 mg/dL (7-18); Bilirubin, Total 0.2 mg/dL (0.2-1.0); CO2 25.9 mmol/L (21.0-32.0); CREATININE 0.8 mg/dL (0.55-1.02); Calcium 9.4 mg/dL (8.5-10.1); Chloride 104 mmol/L (98-107); Glucose 96 mg/dL (74-106); Potassium 4.2 mmol/L (3.5-5.1); Sodium 140 mmol/L (136-145); Total Protein 7.8 g/dL (6.4-8.2)
== END 2021-01-03 23:59 | disposition home or self-care (01) ==
LOC: INF 12:53
PROVIDERS: PCP Physician Assistant Medical; Visit Provider Internal Medicine Medical Oncology
DX: C50.911 Malignant neoplasm of unspecified site of right female breast (principal); Z17.0 Estrogen receptor positive status [ER+]; Z45.2 Encounter for adjustment and management of vascular access device
CPT/HCPCS: 36591; 80053; 85025

== ENCOUNTER 2021-02-12 15:10 | Outpatient (CLI) | payer OTHER, SELFPAY ==
[2021-02-12 10:26] LABS: Abs Immature Grans 0.04 10^3/uL (0.0-0.06); Absolute Basophil Count 0.04 10^3/uL (0.0-0.2); Absolute Eosinophil Count 0.06 10^3/uL (0.0-0.7); Absolute Lymphocyte Count 1.64 10^3/uL (1.2-3.4); Absolute Monocyte Count 0.39 10^3/uL (0.1-0.8); Absolute Neutrophil Count 5.67 10^3/uL (1.2-6.7); Basophils % 0.5; Eosinophils % 0.8; HCT 40.9 % (36.0-46.0); HGB 13.5 g/dL (11.2-15.7); Immature Grans % 0.5; Lymphocytes % 20.9; MCH 29.3 pg (27.0-33.0); MCV 88.7 fL (80-95); MPV 9.1 fL (8.0-11.0); Neutrophils % 72.3; Nucleated RBC 0 %; Platelet Count 214 10^3/uL (130-400); RBC 4.61 10^6/uL (3.93-5.22); RDW 12.7 % (11.7-14.6); RDW-SD 41.7 fL; WBC 7.84 10^3/uL (4.4-10.8)
[2021-02-12 10:47] LABS: Alkaline Phosphatase 60 U/L (46-116); BUN 11 mg/dL (7-18); Bilirubin, Total 0.3 mg/dL (0.2-1.0); CREATININE 0.9 mg/dL (0.55-1.02); Glucose 117 mg/dL (74-106); Sodium 143 mmol/L (136-145); Total Protein 7.6 g/dL (6.4-8.2)
[2021-02-12 10:48] LABS: ALT 34 U/L (14-59); AST 19 U/L (15-37); Anion Gap 12.6 mmol/L (3-11); CO2 26.4 mmol/L (21.0-32.0); Chloride 104 mmol/L (98-107); Potassium 3.8 mmol/L (3.5-5.1)
[2021-02-12 13:41] LABS: TSH (W/Ref FT4) 3.19 uIU/mL (0.36-3.74)
== END 2021-02-12 15:11 | disposition home or self-care (01) ==
LOC: LBO 15:11
PROVIDERS: PCP Physician Assistant Medical; Visit Provider Internal Medicine
DX: C50.911 Malignant neoplasm of unspecified site of right female breast (principal); Z17.0 Estrogen receptor positive status [ER+]; R94.6 Abnormal results of thyroid function studies
CPT/HCPCS: 36415; 80053; 84443; 85025

== ENCOUNTER 2021-02-22 01:49 | Outpatient (CLI) | payer OTHER, SELFPAY ==
--- NOTE | 2021-02-22 10:45 | DI.RAD_ITS ---
Exam(s) XR LUMBAR SPINE COMPLETE EXAM: XR LUMBAR SPINE COMPLETE CLINICAL HISTORY: LOW BACK PAIN M54.5. TECHNIQUE: 2D digital imaging was performed. COMPARISON: No exams were available for comparison FINDINGS: BONES: No fracture or destructive lesion. Vertebral bodies are unremarkable. Mild to moderate facet h ypertrophy L4-5 and L5-S1. Small endplate osteophytes greatest at L5-S1.. DISKS: Moderate to severe narrowing of the L5-S1 disc. Remaining intervertebral disc spaces are main tained. ALIGNMENT: Lumbar spinal alignment is within normal limits. SOFT TISSUE: Right upper quadrant surgical clips. Unremarkable bowel gas pattern. IMPRESSION: Degenerative changes, greatest at L5-S1. DATA REPOSITORY: RADIATION DOSE DELIVERED:
== END 2021-02-22 02:09 ==
PROVIDERS: PCP Physician Assistant Medical; Visit Provider Physician Assistant Medical
DX: M54.59 Other low back pain (principal); M51.37 Other intervertebral disc degeneration, lumbosacral region; M47.817 Spondylosis without myelopathy or radiculopathy, lumbosacral region
CPT/HCPCS: 72110

== ENCOUNTER 2021-02-25 15:04 | Outpatient (REF) | payer OTHER, SELFPAY ==
--- NOTE | 2021-02-25 14:00 | PAPFT_PTH ---
PATIENT: Christiano Santos LOC: N U#:[id number] AGE/SX: 40/F ROOM: RE02/25/[address]: RODY Wheat : 1980 BED: DIS: 02/25/2021 SPEC #: [id number] RECD: 02/25/21 18:03 STATUS: NEIDA REQ #: [id number] HUONG: 02/25/21 14:[address]: Soha Baires DEPT: [facility] Cytology RECD BY: Kennedi Pozo ENTERED: 02/25/21 18:03 SP TYPE: PAPFT OTHR DR: Paula Guthrie Tissues: 1 - CX/ENDOCX FOR PAP SMEARS Procedures: PAP THIN PREP/UVM Screening HPV DNA PROBE Comments: [id number]
== END 2021-02-25 15:05 | disposition home or self-care (01) ==
LOC: LBN 15:04
PROVIDERS: PCP Physician Assistant Medical; Visit Provider Nurse Practitioner Family
DX: Z12.4 Encounter for screening for malignant neoplasm of cervix (principal); Z11.51 Encounter for screening for human papillomavirus (HPV)
CPT/HCPCS: 88142; 87624

== ENCOUNTER 2021-05-02 03:44 | Outpatient (CLI) | payer OTHER, SELFPAY ==
[2021-05-02 16:42] LABS: Anion Gap 13.2 mmol/L (3-11); BUN 9 mg/dL (7-18); CO2 25.8 mmol/L (21.0-32.0); CREATININE 0.8 mg/dL (0.55-1.02); Calcium 9.3 mg/dL (8.5-10.1); Chloride 99 mmol/L (98-107); Glucose 101 mg/dL (74-106); Magnesium 1.8 mg/dL (1.8-2.4); Potassium 3.4 mmol/L (3.5-5.1); Sodium 138 mmol/L (136-145); TSH 1.22 uIU/mL (0.36-3.74)
== END 2021-05-02 03:45 | disposition home or self-care (01) ==
LOC: LBO 03:44
PROVIDERS: PCP Physician Assistant Medical; Visit Provider Physician Assistant Medical
DX: I10 Essential (primary) hypertension (principal); R94.6 Abnormal results of thyroid function studies
CPT/HCPCS: 36415; 80048; 83735; 84443

== ENCOUNTER 2021-05-14 02:12 | Outpatient (CLI) | payer OTHER, SELFPAY ==
[2021-05-14 12:05] LABS: Abs Immature Grans 0.05 10^3/uL (0.0-0.06); Absolute Basophil Count 0.03 10^3/uL (0.0-0.2); Absolute Eosinophil Count 0.07 10^3/uL (0.0-0.7); Absolute Lymphocyte Count 2.69 10^3/uL (1.2-3.4); Absolute Monocyte Count 0.63 10^3/uL (0.1-0.8); Absolute Neutrophil Count 6.54 10^3/uL (1.2-6.7); Basophils % 0.3; Eosinophils % 0.7; HCT 38.9 % (36.0-46.0); HGB 12.6 g/dL (11.2-15.7); Immature Grans % 0.5; Lymphocytes % 26.9; MCH 30.1 pg (27.0-33.0); MCHC 32.4 % (32.0-36.0); MCV 93.1 fL (80-95); Monocytes % 6.3; Neutrophils % 65.3; Nucleated RBC 0 %; Platelet Count 217 10^3/uL (130-400); RBC 4.18 10^6/uL (3.93-5.22); RDW-SD 44.5 fL; WBC 10.01 10^3/uL (4.4-10.8)
[2021-05-14 12:20] LABS: ALT 38 U/L (14-59); AST 22 U/L (15-37); Alkaline Phosphatase 57 U/L (46-116); Anion Gap 11.6 mmol/L (3-11); BUN 7 mg/dL (7-18); Bilirubin, Total 0.3 mg/dL (0.2-1.0); CO2 27.4 mmol/L (21.0-32.0); CREATININE 0.9 mg/dL (0.55-1.02); Calcium 9.6 mg/dL (8.5-10.1); Chloride 99 mmol/L (98-107); Glucose 105 mg/dL (74-106); Sodium 138 mmol/L (136-145); Total Protein 7.8 g/dL (6.4-8.2)
== END 2021-05-14 02:13 | disposition home or self-care (01) ==
LOC: LBO 02:12
PROVIDERS: PCP Physician Assistant Medical; Visit Provider Internal Medicine
DX: C50.911 Malignant neoplasm of unspecified site of right female breast (principal)
CPT/HCPCS: 36415; 80053; 85025

== ENCOUNTER 2021-08-13 01:52 | Outpatient (CLI) | payer OTHER, SELFPAY ==
[2021-08-13 13:08] LABS: Abs Immature Grans 0.07 10^3/uL (0.0-0.06); Absolute Basophil Count 0.04 10^3/uL (0.0-0.2); Absolute Eosinophil Count 0.04 10^3/uL (0.0-0.7); Absolute Lymphocyte Count 2.69 10^3/uL (1.2-3.4); Absolute Monocyte Count 0.52 10^3/uL (0.1-0.8); Absolute Neutrophil Count 6.37 10^3/uL (1.2-6.7); Basophils % 0.4; Eosinophils % 0.4; HCT 39.7 % (36.0-46.0); HGB 13.3 g/dL (11.2-15.7); Immature Grans % 0.7; Lymphocytes % 27.6; MCH 30.4 pg (27.0-33.0); MCHC 33.5 % (32.0-36.0); MCV 91 fL (80-95); Monocytes % 5.3; Neutrophils % 65.6; Platelet Count 232 10^3/uL (130-400); RBC 4.37 10^6/uL (3.93-5.22); RDW-SD 43.6 fL; WBC 9.73 10^3/uL (4.4-10.8)
[2021-08-13 15:11] LABS: ALT 40 U/L (14-59); AST 20 U/L (15-37); Alkaline Phosphatase 68 U/L (46-116); Anion Gap 12.5 mmol/L (3-11); BUN 11 mg/dL (7-18); Bilirubin, Total 0.4 mg/dL (0.2-1.0); CO2 27.5 mmol/L (21.0-32.0); CREATININE 0.8 mg/dL (0.55-1.02); Calcium 9.3 mg/dL (8.5-10.1); Calculated LDL 150 mg/dL (<100); Chloride 99 mmol/L (98-107); Cholesterol 238 mg/dL (<200); Folate 10.3 ng/mL (8.6-20.0); Glucose 93 mg/dL (74-106); HDL Cholesterol 55 mg/dL (40-60); Potassium 3.3 mmol/L (3.5-5.1); Sodium 139 mmol/L (136-145); Total Protein 7.5 g/dL (6.4-8.2); Triglyceride 165 mg/dL (<150); Vitamin B12 636 pg/mL (193-986)
[2021-08-15 05:17] LABS: Vitamin D 25 Total 33.5 ng/mL (30-100)
== END 2021-08-13 01:53 | disposition home or self-care (01) ==
LOC: LBO 01:52
PROVIDERS: Internal Medicine; PCP Physician Assistant Medical; Visit Provider Nurse Practitioner Psychiatric/Mental Health
DX: C50.911 Malignant neoplasm of unspecified site of right female breast (principal); Z17.0 Estrogen receptor positive status [ER+]; I10 Essential (primary) hypertension; F32.89 Other specified depressive episodes; Z79.899 Other long term (current) drug therapy
CPT/HCPCS: 36415; 80053; 80061; 82306; 82607; 82746; 85025

== ENCOUNTER 2021-11-26 03:03 | Outpatient (CLI) | payer OTHER, SELFPAY ==
[2021-11-26 12:42] LABS: Abs Immature Grans 0.05 10^3/uL (0.0-0.06); Absolute Basophil Count 0.03 10^3/uL (0.0-0.2); Absolute Eosinophil Count 0.04 10^3/uL (0.0-0.7); Absolute Lymphocyte Count 2.11 10^3/uL (1.2-3.4); Absolute Monocyte Count 0.63 10^3/uL (0.1-0.8); Absolute Neutrophil Count 6.07 10^3/uL (1.2-6.7); Basophils % 0.3; Eosinophils % 0.4; HCT 39.8 % (36.0-46.0); HGB 13.2 g/dL (11.2-15.7); Immature Grans % 0.6; Lymphocytes % 23.6; MCH 30.2 pg (27.0-33.0); MCHC 33.2 % (32.0-36.0); MCV 91 fL (80-95); MPV 9.1 fL (8.0-11.0); Monocytes % 7.1; Platelet Count 246 10^3/uL (130-400); RBC 4.37 10^6/uL (3.93-5.22); RDW 12.6 % (11.7-14.6); RDW-SD 41.8 fL; WBC 8.93 10^3/uL (4.4-10.8)
[2021-11-26 13:07] LABS: ALT 27 U/L (14-59); AST 20 U/L (15-37); Alkaline Phosphatase 48 U/L (46-116); Anion Gap 10.9 mmol/L (3-11); BUN 14 mg/dL (7-18); Bilirubin, Total 0.2 mg/dL (0.2-1.0); CO2 28.1 mmol/L (21.0-32.0); CREATININE 0.8 mg/dL (0.55-1.02); Calcium 9.2 mg/dL (8.5-10.1); Chloride 99 mmol/L (98-107); Glucose 107 mg/dL (74-106); Potassium 3.2 mmol/L (3.5-5.1); Sodium 138 mmol/L (136-145); TSH 1.84 uIU/mL (0.36-3.74); Total Protein 8.1 g/dL (6.4-8.2)
== END 2021-11-26 03:04 | disposition home or self-care (01) ==
LOC: LBO 03:03
PROVIDERS: PCP Physician Assistant Medical; Visit Provider Internal Medicine
DX: I10 Essential (primary) hypertension (principal); R94.6 Abnormal results of thyroid function studies; C50.911 Malignant neoplasm of unspecified site of right female breast; Z17.0 Estrogen receptor positive status [ER+]
CPT/HCPCS: 36415; 80053; 84443; 85025

== ENCOUNTER 2022-02-11 03:24 | Outpatient (CLI) | payer OTHER, SELFPAY ==
[2022-02-11 13:40] LABS: Abs Immature Grans 0.04 10^3/uL (0.0-0.06); Absolute Basophil Count 0.05 10^3/uL (0.0-0.2); Absolute Eosinophil Count 0.06 10^3/uL (0.0-0.7); Absolute Lymphocyte Count 2.67 10^3/uL (1.2-3.4); Absolute Neutrophil Count 6.75 10^3/uL (1.2-6.7); Basophils % 0.5; Eosinophils % 0.6; HCT 37.8 % (36.0-46.0); HGB 12.9 g/dL (11.2-15.7); Immature Grans % 0.4; Lymphocytes % 26.3; MCH 30.8 pg (27.0-33.0); MCHC 34.1 % (32.0-36.0); MCV 90 fL (80-95); MPV 9.2 fL (8.0-11.0); Monocytes % 5.9; Neutrophils % 66.3; Platelet Count 215 10^3/uL (130-400); RBC 4.19 10^6/uL (3.93-5.22); RDW 12.5 % (11.7-14.6); RDW-SD 41.6 fL; WBC 10.17 10^3/uL (4.4-10.8)
[2022-02-11 14:01] LABS: ALT 25 U/L (14-59); AST 20 U/L (15-37); Albumin 4.2 g/dL (3.4-5.0); Alkaline Phosphatase 47 U/L (46-116); Anion Gap 11.7 mmol/L (3-11); BUN 10 mg/dL (7-18); Bilirubin, Total 0.2 mg/dL (0.2-1.0); CO2 26.3 mmol/L (21.0-32.0); CREATININE 0.9 mg/dL (0.55-1.02); Calcium 9.7 mg/dL (8.5-10.1); Chloride 97 mmol/L (98-107); Estimated GFR 81.86 (mL/min/1.73m2); Glucose 109 mg/dL (74-106); Potassium 3.2 mmol/L (3.5-5.1); Sodium 135 mmol/L (136-145); Total Protein 8.1 g/dL (6.4-8.2)
[2022-02-11 14:03] LABS: Diff Comment Agrees w/ Instrument; RBC Morphology Normal
== END 2022-02-11 03:25 | disposition home or self-care (01) ==
LOC: LBO 03:24
PROVIDERS: Nurse Practitioner Family; PCP Physician Assistant Medical; Visit Provider Physician Assistant Medical
DX: C50.911 Malignant neoplasm of unspecified site of right female breast (principal)
CPT/HCPCS: 36415; 80053; 85025

== ENCOUNTER 2022-03-21 01:03 | Outpatient (CLI) | payer OTHER, SELFPAY ==
[2022-03-21 13:53] LABS: Anion Gap 8.1 mmol/L (3-11); BUN 10 mg/dL (7-18); CO2 28.9 mmol/L (21.0-32.0); Calcium 9.4 mg/dL (8.5-10.1); Chloride 101 mmol/L (98-107); Estimated GFR 72.13 (mL/min/1.73m2); Glucose 102 mg/dL (74-106); Potassium 3.5 mmol/L (3.5-5.1); Sodium 138 mmol/L (136-145)
== END 2022-03-21 01:04 | disposition home or self-care (01) ==
LOC: LBO 01:03
PROVIDERS: PCP Physician Assistant Medical; Visit Provider Physician Assistant Medical
DX: I10 Essential (primary) hypertension (principal); E87.6 Hypokalemia
CPT/HCPCS: 36415; 80048

== ENCOUNTER 2022-05-07 18:48 | Outpatient (REF) | payer OTHER, SELFPAY ==
[2022-05-07 21:42] LABS: ESR 5 mm/hr (0-20)
[2022-05-07 22:01] LABS: C-Reactive Protein 0.05 mg/dL (0.0-0.3)
[2022-05-09 14:14] LABS: ANA Interpretation Negative (Negative)
[2022-05-09 14:57] LABS: SS-A Antibody 0.9 Units (<20.0); SS-B (La) Ab, IgG 3.3 Units (<20.0)
== END 2022-05-07 18:49 | disposition home or self-care (01) ==
LOC: NCHCN 18:48
PROVIDERS: PCP Physician Assistant Medical; Visit Provider Physician Assistant Medical
DX: R94.6 Abnormal results of thyroid function studies (principal); H04.129 Dry eye syndrome of unspecified lacrimal gland
CPT/HCPCS: 85652; 86038; 86140; 86235

== ENCOUNTER 2022-09-16 02:08 | Outpatient (CLI) | payer OTHER, SELFPAY ==
[2022-09-16 09:18] LABS: Abs Immature Grans 0.02 10^3/uL (0.0-0.06); Absolute Basophil Count 0.04 10^3/uL (0.0-0.2); Absolute Eosinophil Count 0.07 10^3/uL (0.0-0.7); Absolute Lymphocyte Count 2.34 10^3/uL (1.2-3.4); Absolute Monocyte Count 0.51 10^3/uL (0.1-0.8); Absolute Neutrophil Count 5.23 10^3/uL (1.2-6.7); Basophils % 0.5; Eosinophils % 0.9; HCT 39.5 % (36.0-46.0); HGB 13.1 g/dL (11.2-15.7); Immature Grans % 0.2; Lymphocytes % 28.5; MCHC 33.2 % (32.0-36.0); MCV 91 fL (80-95); Monocytes % 6.2; Neutrophils % 63.7; Platelet Count 210 10^3/uL (130-400); RBC 4.36 10^6/uL (3.93-5.22); RDW 13.2 % (11.7-14.6); RDW-SD 43.3 fL; WBC 8.21 10^3/uL (4.4-10.8)
[2022-09-16 09:35] LABS: Calculated LDL 123 mg/dL (<100); Cholesterol 209 mg/dL (<200); HDL Cholesterol 75 mg/dL (40-60); Triglyceride 55 mg/dL (<150)
[2022-09-16 09:36] LABS: ALT 27 U/L (14-59); AST 18 U/L (15-37); Albumin 3.8 g/dL (3.4-5.0); Alkaline Phosphatase 51 U/L (46-116); Anion Gap 9.3 mmol/L (3-11); BUN 11 mg/dL (7-18); Bilirubin, Total 0.3 mg/dL (0.2-1.0); CO2 26.7 mmol/L (21.0-32.0); CREATININE 0.9 mg/dL (0.55-1.02); Calcium 9.2 mg/dL (8.5-10.1); Chloride 104 mmol/L (98-107); Estimated GFR 81.35 (mL/min/1.73m2); Glucose 96 mg/dL (74-106); Potassium 4.1 mmol/L (3.5-5.1); Sodium 140 mmol/L (136-145); Total Protein 7.6 g/dL (6.4-8.2)
== END 2022-09-16 02:09 | disposition home or self-care (01) ==
PROVIDERS: PCP Physician Assistant Medical; Visit Provider Nurse Practitioner Family
DX: C50.911 Malignant neoplasm of unspecified site of right female breast (principal); Z17.0 Estrogen receptor positive status [ER+]; I10 Essential (primary) hypertension
CPT/HCPCS: 36415; 80053; 80061; 85025

== ENCOUNTER 2023-03-10 02:07 | Outpatient (CLI) | payer OTHER, SELFPAY ==
[2023-03-10 07:18] LABS: Abs Immature Grans 0.05 10^3/uL (0.0-0.06); Absolute Basophil Count 0.04 10^3/uL (0.0-0.2); Absolute Eosinophil Count 0.08 10^3/uL (0.0-0.7); Absolute Lymphocyte Count 2.38 10^3/uL (1.2-3.4); Absolute Monocyte Count 0.58 10^3/uL (0.1-0.8); Absolute Neutrophil Count 4.55 10^3/uL (1.2-6.7); Basophils % 0.5; HCT 39.9 % (36.0-46.0); Immature Grans % 0.7; MCH 29.8 pg (27.0-33.0); MCHC 32.6 % (32.0-36.0); MCV 92 fL (80-95); MPV 9.1 fL (8.0-11.0); Monocytes % 7.6; Neutrophils % 59.2; Platelet Count 207 10^3/uL (130-400); RBC 4.36 10^6/uL (3.93-5.22); RDW 12.6 % (11.7-14.6); RDW-SD 42.4 fL; WBC 7.68 10^3/uL (4.4-10.8)
[2023-03-10 07:44] LABS: ALT 25 U/L (14-59); AST 15 U/L (15-37); Albumin 3.9 g/dL (3.4-5.0); Alkaline Phosphatase 46 U/L (46-116); Anion Gap 9.9 mmol/L (3-11); BUN 19 mg/dL (7-18); Bilirubin, Total 0.2 mg/dL (0.2-1.0); CO2 26.1 mmol/L (21.0-32.0); CREATININE 0.9 mg/dL (0.55-1.02); Calcium 9.3 mg/dL (8.5-10.1); Chloride 102 mmol/L (98-107); Estimated GFR 81.35 (mL/min/1.73m2); Glucose 104 mg/dL (74-106); Potassium 4.2 mmol/L (3.5-5.1); Sodium 138 mmol/L (136-145); Total Protein 7.6 g/dL (6.4-8.2)
== END 2023-03-10 02:08 | disposition home or self-care (01) ==
PROVIDERS: PCP Physician Assistant Medical; Visit Provider Nurse Practitioner Family
DX: C50.311 Malignant neoplasm of lower-inner quadrant of right female breast (principal); Z17.0 Estrogen receptor positive status [ER+]
CPT/HCPCS: 36415; 80053; 85025

== ENCOUNTER 2023-06-22 15:42 | Outpatient (REF) | payer OTHER, SELFPAY ==
--- NOTE | 2023-06-22 15:15 | PAPFT_PTH ---
PATIENT: Christiano Santos LOC: [facility] U#:[id number] AGE/SX: 43/F ROOM: RE06/22/[address]: Janelle Erickson NP : 1980 BED: DIS: 06/22/2023 SPEC #: [id number] RECD: 06/22/23 17:56 STATUS: NEIDA REQ #: [id number] HUONG: 06/22/23 15:[address]: Georgina BA,Janelle DEPT: [facility] Cytology RECD BY: Kennedi Pozo ENTERED: 06/22/23 17:56 SP TYPE: PAPFT OTHR DR: Paula Guthrie Tissues: 1 - CX/ENDOCX FOR PAP SMEARS Procedures: PAP THIN PREP/UVM Screening HPV DNA PROBE Comments: [id number]
== END 2023-06-22 15:43 | disposition home or self-care (01) ==
LOC: LBN 15:42
PROVIDERS: PCP Physician Assistant Medical; Visit Provider Nurse Practitioner Women's Health
DX: Z12.4 Encounter for screening for malignant neoplasm of cervix (principal); Z11.51 Encounter for screening for human papillomavirus (HPV)
CPT/HCPCS: 88142; 87624

== ENCOUNTER → 2023-08-28 01:02 | Outpatient (CLI) | payer OTHER, SELFPAY ==
--- NOTE | 2023-08-28 | DI.CT_ITS ---
Exam(s) CT CHEST W EXAM: CT CHEST W CLINICAL HISTORY: f/u multiple lung nodules < 6 mm; Rt breast malignant neoplasm, C50.911. TECHNIQUE: Multi planar reconstructions were performed. CONTRAST MATERIAL: Omnipaque 350; 75 cc COMPARISON: CR XR PORTABLE CHEST AP POST LINE from 07/03/2020 There are no prior chest CT scans available at the time of this interpretation. FINDINGS: CHEST: LUNGS: There is a benign-appearing thin walled bulla in the left lower lobe noted, measures 3 x 3 cm. There are no infiltrates nor pleural effusions. No distinct pulmonary nodules evident. Mild benig n-appearing increased markings in the inferior lingular segment of the left lung are noted. No signi ficant findings in the trachea and mainstem bronchi. MEDIASTINUM: There is no hilar nor mediastinal adenopathy. Visualized thyroid unremarkable. CARDIAC: Heart size is normal. There is no pericardial effusion.Caliber of the thoracic aorta is wit hin normal limits. VISUALIZED UPPER ABDOMEN:There are no significant adrenal masses. Gallbladder surgically absent.z OSSEOUS: No significant osseous lesions.. IMPRESSION: 1. No significant acute pulmonary findings. No significant lung nodules nor pleural effusions. No i ntrathoracic adenopathy. 2. Benign thin walled jun left lower lobe noted. RADIATION DOSE DELIVERED: 761.83mGy.cm Total DLP DATA REPOSITORY: All CT scans at this facility are submitted to the National Radiology Data Registry (NRDR) Dose Index Registry (DIR) with the [employer] ([employer]). RADIATION OPTIMIZATION: All CT scans at this facility use at least one of these dose optimization te chniques: automated exposure control; mA and/or kV adjustment per patient size (includes targeted exa ms where dose is matched to clinical indication); or iterative reconstruction.
[2023-08-28 15:00] LABS: HCT 38.4 % (36.0-46.0); HGB 12.5 g/dL (11.2-15.7); MCHC 32.6 % (32.0-36.0); MCV 92 fL (80-95); MPV 8.9 fL (8.0-11.0); Platelet Count 198 10^3/uL (130-400); RBC 4.16 10^6/uL (3.93-5.22); RDW 13.3 % (11.7-14.6); RDW-SD 45.7 fL; WBC 8.59 10^3/uL (4.4-10.8)
[2023-08-28 15:21] LABS: ALT 28 U/L (14-59); AST 16 U/L (15-37); Albumin 3.9 g/dL (3.4-5.0); Alkaline Phosphatase 54 U/L (46-116); Anion Gap 12.2 mmol/L (3-11); BUN 9 mg/dL (7-18); Bilirubin, Total 0.3 mg/dL (0.2-1.0); CO2 25.8 mmol/L (21.0-32.0); Calcium 9.1 mg/dL (8.5-10.1); Chloride 101 mmol/L (98-107); Estimated GFR 71.24 (mL/min/1.73m2); Glucose 105 mg/dL (74-106); Potassium 3.5 mmol/L (3.5-5.1); Sodium 139 mmol/L (136-145); Total Protein 7.6 g/dL (6.4-8.2)
[2023-08-28 15:22] LABS: Absolute Eosinophil Count 0.17 10^3/uL (0.0-0.7); Absolute Lymphocyte Count 2.66 10^3/uL (1.2-3.4); Absolute Monocyte Count 0.34 10^3/uL (0.1-0.8); Absolute Neutrophil Count 5.41 10^3/uL (1.2-6.7); Atypical Lymphocytes % 4 %; Diff Comment Manual Differential; RBC Morphology Normal
[2023-08-28] MEDS: Omnipaque 350 MG/ML 100 ML BTL 70 ML IJ (16:03)
[2023-08-28] MEDS: Normal Saline - Diluent 50 ML VIAL IJ (16:04)
== END ==
PROVIDERS: PCP Physician Assistant Medical; Visit Provider Nurse Practitioner
DX: C50.911 Malignant neoplasm of unspecified site of right female breast (principal); R91.8 Other nonspecific abnormal finding of lung field
CPT/HCPCS: 80053; 71260; 85025; J3490

== ENCOUNTER 2024-03-25 01:10 | Outpatient (CLI) | payer OTHER, SELFPAY ==
[2024-03-25 12:40] LABS: Abs Immature Grans 0.06 10^3/uL (0.0-0.06); Absolute Basophil Count 0.06 10^3/uL (0.0-0.2); Absolute Monocyte Count 0.69 10^3/uL (0.1-0.8); Absolute Neutrophil Count 5.45 10^3/uL (1.2-6.7); Basophils % 0.6 %; HCT 38.4 % (36.0-46.0); HGB 12.5 g/dL (11.2-15.7); Immature Grans % 0.6 %; Lymphocytes % 36.1 %; MCH 29.9 pg (27.0-33.0); MCHC 32.6 % (32.0-36.0); MCV 92 fL (80-95); MPV 8.8 fL (8.0-11.0); Monocytes % 6.9 %; Neutrophils % 54.8 %; Platelet Count 221 10^3/uL (130-400); RBC 4.18 10^6/uL (3.93-5.22); RDW 12.9 % (11.7-14.6); RDW-SD 43.6 fL; WBC 9.96 10^3/uL (4.4-10.8)
[2024-03-25 12:55] LABS: ALT 21 U/L (14-59); AST 17 U/L (15-37); Albumin 3.9 g/dL (3.4-5.0); Alkaline Phosphatase 66 U/L (46-116); Anion Gap 11.3 mmol/L (3-11); BUN 10 mg/dL (7-18); Bilirubin, Total 0.17 mg/dL (0.2-1.0); CO2 25.7 mmol/L (21.0-32.0); Chloride 105 mmol/L (98-107); Estimated GFR 71.24 (mL/min/1.73m2); Glucose 104 mg/dL (74-106); Potassium 3.6 mmol/L (3.5-5.1); Sodium 142 mmol/L (136-145); Total Protein 7.6 g/dL (6.4-8.2)
== END 2024-03-25 01:11 | disposition home or self-care (01) ==
LOC: LBO 01:10
PROVIDERS: PCP Physician Assistant Medical; Visit Provider Nurse Practitioner
DX: C50.911 Malignant neoplasm of unspecified site of right female breast (principal); Z17.0 Estrogen receptor positive status [ER+]; E03.9 Hypothyroidism, unspecified
CPT/HCPCS: 36415; 80053; 84443; 85025

== ENCOUNTER 2024-09-27 03:07 | Outpatient (CLI) | payer OTHER, SELFPAY ==
[2024-09-27 08:02] LABS: Abs Immature Grans 0.03 10^3/uL (0.0-0.06); Absolute Basophil Count 0.04 10^3/uL (0.0-0.2); Absolute Eosinophil Count 0.08 10^3/uL (0.0-0.7); Absolute Monocyte Count 0.59 10^3/uL (0.1-0.8); Absolute Neutrophil Count 5.27 10^3/uL (1.2-6.7); Basophils % 0.5 %; Eosinophils % 0.9 %; HCT 40.7 % (36.0-46.0); HGB 13.4 g/dL (11.2-15.7); Immature Grans % 0.3 %; Lymphocytes % 30.2 %; MCH 29.8 pg (27.0-33.0); MCHC 32.9 % (32.0-36.0); MCV 90 fL (80-95); MPV 9.1 fL (8.0-11.0); Monocytes % 6.9 %; Neutrophils % 61.2 %; Platelet Count 218 10^3/uL (130-400); RDW 13.2 % (11.7-14.6); RDW-SD 43.6 fL; WBC 8.61 10^3/uL (4.4-10.8)
[2024-09-27 08:33] LABS: Calculated LDL 132 mg/dL (<100); Cholesterol 222 mg/dL (<200); HDL Cholesterol 61 mg/dL (>or=50); Triglyceride 147 mg/dL (<150)
[2024-09-27 08:49] LABS: ALT 29 U/L (14-59); AST 19 U/L (15-37); Albumin 4.2 g/dL (3.4-5.0); Alkaline Phosphatase 59 U/L (46-116); Anion Gap 11.8 mmol/L (3-11); BUN 9 mg/dL (7-18); Bilirubin, Total 0.3 mg/dL (0.2-1.0); CO2 26.2 mmol/L (21.0-32.0); CREATININE 0.9 mg/dL (0.55-1.02); Calcium 9.6 mg/dL (8.5-10.1); Chloride 105 mmol/L (98-107); Estimated GFR 80.34 (mL/min/1.73m2); Glucose 102 mg/dL (74-106); Potassium 3.9 mmol/L (3.5-5.1); Sodium 143 mmol/L (136-145)
== END 2024-09-27 03:08 | disposition home or self-care (01) ==
LOC: LBO 03:08
PROVIDERS: Nurse Practitioner; PCP Physician Assistant Medical; Visit Provider Physician Assistant Medical
DX: C50.911 Malignant neoplasm of unspecified site of right female breast (principal); Z17.0 Estrogen receptor positive status [ER+]; R23.2 Flushing; I10 Essential (primary) hypertension
CPT/HCPCS: 36415; 80053; 80061; 85025

== ENCOUNTER 2024-12-29 08:26 | Day surgery (SDC) | payer OTHER, SELFPAY ==
[2024-12-29 08:53] VITALS: BP 176/105; PULSE 108; RESP 20; TEMP 36.9; O2SAT 98
[2024-12-29] MEDS: Lactated Ringers 1,000 ML 80 ML IV (09:09)
--- NOTE | 2024-12-29 09:11 | W.PM.HP.N ---
Date of service: 12/29/24 Time of Service: 09:12 Assessment and Plan Assessment and plan (1) Screening for colorectal cancer: Status: Acute Assessment and plan: proceed w screening colonoscopy. Discussed colonoscopy procedure risks, benefits, alternatives and expectations. consent form signed. History of Present Illness Narrative: Chief complaint: here for colonoscopy HPI: 44yo F here for initial screening colonoscopy. She was seen in office in november. She is average risk. No abd pain symptoms, no unplanned weight loss. no rectal bleeding. PFSH All Active Problems (Updated 12/29/24 @ 09:29 by Dominique Bragg MD) Screening for colorectal cancer (Acute) Pelvic floor dysfunction (Acute) Tobacco use disorder (Acute) Muscle pain, myofascial (Acute) Nevus (Acute) Acne vulgaris (Acute) Breast cancer, right breast (Acute) managed by [facility] Hypothyroid (Chronic) Hypertension (Chronic) Medical History Depression Anxiety Esophageal reflux Constipation Elevated TSH Ductal carcinoma in situ (DCIS) of right breast Insomnia History of asthma Breast cancer Personal history of cervical dysplasia (05/23/11) 1998 ANTON III Surgical History H/O breast reconstruction (~05/01/21) H/O partial mastectomy Cholecystectomy (~2004) Cervical Procedure LEEP 1998 section (~1997) Family History Mother Hyperlipidemia Father Heart disease Social History Smoking/Tobacco Use Status: Current every day Tobacco Type: cigarettes Tobacco: How many years used: 25 Quit status: considering quitting Counseling given: other (informed on Quit program) Smoking risk assessment performed?: Yes Alcohol Intake: never Drug use: Never Substance use type: does not use Housing: house current occupation: [employer] Sexually active: Yes Current gender identity: female What type of physical activity do you participate in: none Seatbelt use: always Helmet use: Yes Do you feel safe at home: Yes Do you feel safe in your relationship?: Yes Female Reproductive History Menstrual control method: none History History 2 Para 2 Hx # Term Pregnancies Multiple births Hx # Pregnancies Ectopic pregnancies AB induced Hx Number of Living Children AB spontaneous Meds Allergies and Home Medications Allergies Allergy/AdvReac Type Severity Reaction Status Date / Time dicyclomine (From Bentyl) Allergy Unknown Other (See Verified 12/29/24 08:39 Comment) bupropion AdvReac Mild HEADACHE Verified 12/29/24 08:39 Home Medications ?Medication ?Instructions ?Recorded ?Confirmed ?Type fluticasone fur. 100 mcg-umeclid 1 inh inhalation DAILY 07/02/20 12/29/24 History 62.5 mcg-vilant 25 mcg inhalat.powder (Trelegy Ellipta) ibuprofen 200 mg capsule 200 mg PO Q6H PRN 07/02/20 12/29/24 History tamoxifen 20 mg tablet 20 mg PO DAILY 07/02/20 12/29/24 History trazodone 50 mg tablet 50 mg PO QHS PRN 05/02/21 12/29/24 History lisinopril 10 mg tablet 40 mg PO DAILY 03/03/22 12/29/24 History levothyroxine 25 mcg tablet 75 mcg PO DAILY 06/22/23 12/29/24 History bisacodyl 5 mg tablet,delayed 5 mg PO ONCE #4 tabs 11/09/24 12/29/24 Rx release (Dulcolax (bisacodyl)) diltiazem HCl 60 mg 120 mg PO HS 11/09/24 12/29/24 History capsule,extended release 12 hr levocetirizine 5 mg tablet (Xyzal) 5 mg PO QPM PRN 11/09/24 12/29/24 History polyethylene glycol 3350 17 17 g PO ONCE #238 grams 11/09/24 12/29/24 Rx gram/dose oral powder Exam Narrative Exam Narrative: awake, NAD eomi, MMM midline trachea, neck is symmetric PULM: normal resp effort, equal chest rise with respiration, no wheezing audible CARDIAC: normal PMI, no jvd, regular rate, normal perfusion abdomen is nondistended. extremities are without deformity, normal movement of all four extremities speech is clear and coherent mood and affect are congruent, no focal neurological deficits skin without rash Results Last Vital Signs Temp 98.4 F 12/29/24 08:53 Pulse 108 H 12/29/24 08:53 Resp 20 12/29/24 08:53 BP 176/105 H 12/29/24 08:53 Pulse Ox 98 12/29/24 08:53 Time Spent Time spent with Patient: <40 minutes Time was spent: preparing to see the patient(eg.review tests) and counseling the patient
--- NOTE | 2024-12-29 09:34 | W.ANESPRE ---
General Info Date of Service Date Performed: 12/29/24 Height: 5 ft 9 in Weight: 103.3 kg Body Mass Index (BMI): 33.6 Surgical Procedure: Operation Date: 12/29/24 10:35 Proposed Procedure Side Surgeon bk Bragg MD Meds Allergies and Home Medications Allergies Allergy/AdvReac Type Severity Reaction Status Date / Time dicyclomine (From Bentyl) Allergy Unknown Other (See Verified 12/29/24 08:39 Comment) bupropion AdvReac Mild HEADACHE Verified 12/29/24 08:39 Home Medication ?Medication ?Instructions ?Recorded fluticasone fur. 100 mcg-umeclid 1 inh inhalation DAILY 07/02/20 62.5 mcg-vilant 25 mcg inhalat.powder (Trelegy Ellipta) ibuprofen 200 mg capsule 200 mg PO Q6H PRN 07/02/20 tamoxifen 20 mg tablet 20 mg PO DAILY 07/02/20 trazodone 50 mg tablet 50 mg PO QHS PRN 05/02/21 lisinopril 10 mg tablet 40 mg PO DAILY 03/03/22 levothyroxine 25 mcg tablet 75 mcg PO DAILY 06/22/23 diltiazem HCl 60 mg 120 mg PO HS 11/09/24 capsule,extended release 12 hr levocetirizine 5 mg tablet (Xyzal) 5 mg PO QPM PRN 11/09/24 Current Visit Medications: Current Medications Generic Name Dose Route Start Last Admin Trade Name Freq PRN Reason Stop Dose Admin Ringer's Solution 1,000 mls @ 80 mls/hr 12/29/24 06:00 12/29/24 09:09 IV 12/29/24 23:59 80 mls/hr INFUSION SHAHAB Administration IV Miscellaneous Supplies 1 each 12/29/24 06:00 Iv Access IV 12/29/24 23:59 DIRECTED SHAHAB Sodium Biphosphate/Sodium Phosphate 133 - 266 ml 12/29/24 06:00 Na Phosphate Enema-Adult 133 Ml Btl KS 12/29/24 23:59 PRN PRN Sodium Chloride 0 ml 12/29/24 06:00 Normal Saline Flush 10 Ml Syr IV 12/29/24 23:59 PRN PRN Sodium Chloride 0 ml 12/29/24 06:00 Normal Saline 10 Ml Vial IJ 12/29/24 23:59 DIRECTED PRN Sterile Water 0 ml 12/29/24 06:00 Water,Injection,Sterile 10 Ml Vial IJ 12/29/24 23:59 DIRECTED PRN PFSH Active Problems Active Problems: Problem Status Onset Code Screening for colorectal cancer Acute Z12.11, Z12.12 Pelvic floor dysfunction Acute M62.89 Tobacco use disorder Acute F17.200 Muscle pain, myofascial Acute M79.18 Nevus Acute D22.9 Acne vulgaris Acute L70.0 Breast cancer, right breast Acute C50.911 Hypothyroid Chronic E03.9 Hypertension Chronic I10 Medical History Medical History Depression Anxiety Esophageal reflux Constipation Elevated TSH Ductal carcinoma in situ (DCIS) of right breast Insomnia History of asthma Breast cancer Personal history of cervical dysplasia (05/23/11) 1997 ANTON III Medical History Comments:: No IV/BP on RIGHT arm Surgical History Surgical History H/O breast reconstruction (~05/01/21) H/O partial mastectomy Cholecystectomy (~2004) Cervical Procedure LEEP 1998 section (~1997) Tobacco Smoking/Tobacco Use Status: Current every day Tobacco Type: cigarettes Passive smoking exposure: Yes Counseling given: other (informed on Quit program) Alcohol Alcohol Intake: never Substance Use Substance use: Never Substance use type: does not use Prental History History 2 Para 2 Hx # Term Pregnancies Multiple births Hx # Pregnancies Ectopic pregnancies AB induced Hx Number of Living Children AB spontaneous Vital Signs and Lab Results Vital Signs Most Recent Vital Signs in EMR: Most Recent Vital Signs Temp Pulse Resp BP Pulse Ox 36.9 C 108 H 20 176/105 H 98 12/29/24 08:53 12/29/24 08:53 12/29/24 08:53 12/29/24 08:53 12/29/24 08:53 Imaging and Studies Imaging and Studies Study information below may be from another EMR and interpreted by another provider. Please see original notes in EMR for more complete details. Echocardiogram Summary: 08/2020:Conclusion Left Ventricle : The left ventricle is normal size. The left ventricular systolic function is normal. The left ventricular ejection fraction is within the normal range. There is normal left ventricular wall thickness. There is normal LV segmental wall motion. The left ventricular diastolic function is normal. LVEF is 59%. Global longitudinal strain is -16.5%. Right Ventricle : The right ventricle is normal size. The right ventricular systolic function is normal. The RVSP is 29.6 mmHg. Atria : The left atrium size is normal. The right atrium size is normal. Mitral Valve : The mitral valve is normal in structure. Trace to mild mitral regurgitation. No evidence of mitral valve stenosis. Great Vessels : The aortic root is normal in size. The ascending aorta is normal in size. Aortic arch is not well visualized. IVC is normal in size and collapses >50% with inspiration. Please see remainder of study for further details. Anesthesia Assessment and Plan Anesthesia History Personal History: Awareness Under Anesthesia Family History: No Family History of Anesthesia Complications Exercise Tolerance Exercise Tolerance: Metabolic Equivalents>4 Pertinent Negatives Pertinent Negatives: No Symptoms of GERD Cardiac & Pulmonary Exam Cardiac Exam: Normal S1/S2 Heart Sounds Pulmonary Exam: Clear Bilateral Breath Sounds Implantable Cardiac Device Does patient have a Pacemaker or an ICD?: No Airway Exam Known Difficult Airway: No Mallampati Class: 1 Mouth Opening: Normal (> 3cm) Thyromental Distance: Greater than 3 cm Neck Range of Motion: Full ROM Neck Circumference: Normal Teeth Condition: Normal Dentition ASA Classification ASA Score: ASA 2 Emergency Case?: No NPO Status NPO Status: NPO Clears >2 hours, Solids >8 hours Status Status: Negative HCG Anesthesia Plan Resuscitation Status: Full Code Anesthesia Technique: General Anesthesia Airway Planned: Natural Airway Monitors Used: Standard Monitors
[2024-12-29 09:40] VITALS: BMI 33.6
--- NOTE | 2024-12-29 09:59 | W.PM.DSUDISC ---
Date of service: 12/29/24 Discharge Plan Disposition Patient Disposition: Home Condition: Stable Discharge Details Attending Provider: Dominique Bragg Primary Care Provider: Paula Guthrie Recommendations for Follow Up Recommended tests to be ordered by follow up provider: Next colonoscopy due in 5 years Home Meds and New Rx's Prescriptions: Discontinued bisacodyl [Dulcolax (bisacodyl)] 5 mg tablet,delayed release (DR/EC) 5 mg PO ONCE Qty: 4 0RF Rx Instructions: Take per colonoscopy instructions provided by ordering providers office polyethylene glycol 3350 17 gram/dose powder 17 g PO ONCE Qty: 238 0RF Rx Instructions: Take per colonoscopy instructions provided by ordering providers office No Action levothyroxine 25 mcg tablet 75 mcg PO DAILY trazodone 50 mg tablet 50 mg PO QHS PRN lisinopril 10 mg tablet 40 mg PO DAILY diltiazem HCl 60 mg capsule,extended release 12 hr 120 mg PO HS levocetirizine [Xyzal] 5 mg tablet 5 mg PO QPM PRN tamoxifen 20 mg Tablet 20 mg PO DAILY Patient Comments: 07/03/20 Pt states I have Rx but will not begin until after chemo/rad Trelegy Ellipta 100-62.5-25 mcg Blister With Device 1 inh INHALATION DAILY ibuprofen 200 mg Capsule 200 mg PO Q6H PRN Discharge Instructions Additional Instructions: Two small polyps seen and removed. Timing of next colonoscopy will depend on biopsies of these polyps. If they are hyperplastic polyps, you will be due again in 10 years for colonoscopy. If they are other types of polyps, you will be due again in 3-5 years. I predict a 5 year follow up for you. will notify you by mail of final result. Stand Alone Forms: Anesthesia Discharge Inst., Colonoscopy Post Instructions, Soto Danielson ([facility]U) Activity:: Activity as Tolerated Diet:: As Tolerated Discharge Orders Discharge Orders: Discharge Order (Routine); Ordered 12/29/24 Ordered By: Dominique Bragg DS: Diagnosis Discharge Diagnosis (1) Screening for colorectal cancer: Status: Acute (2) Polyp of transverse colon: Status: Acute (3) Polyp of descending colon: Status: Acute
--- NOTE | 2024-12-29 10:00 | COLE_ITS ---
Date of service: 12/29/24 Time of Service: 10:40 Colonoscopy Report Date of procedure: 12/29/24 Pre-op diagnosis general: Screening for colorectal cancer Post-op diagnosis procedure note: same Procedure: Colonoscopy with cold forceps polypectomy Surgeon: Dominique Bragg Anesthesia Type: General:No Airway Estimated blood loss (mL): 2 Pathology: other (1. transverse colon polyp. 2. descending colon polyp. ) Complications: None Indications: screening for colorectal cancer Prep: Miralax/Dulcolax Findings: Unable to intubate cecum. Able to see into cecum, but not able to inbtubate it for complete exam due to limits of scope length. Satisfactory exam, no need to repeat. Procedure Description: Informed consent was obtained and the patient was taken to the procedure area. The patient was placed in left lateral decubitus position on the procedure table. Timeout was performed. Anesthesia was induced. A lubricated colon oscope was inserted through the anus and passed to the cecum. The scope was then slowly withdrawn and the colonic and rectal mucosa examined. The cecum was identified by the ileocecal valve and the appendiceal orifice which could be seen easily, though cecum could not be intubated. Scope was unlooped and pulled back then advanced. Each time, the scope length limit would be reached at the entry to the cecum and additional length to intubate the cecum was not available. transverse colon polyp 5mm sessile excised with cold forceps. descending colon polyp 5mm sessile excised with cold forceps. No diverticulosis was seen. The scope was retroflexed in the anorectal junction examined. Uncomplicated internal hemorrhoids present. Assessment and plan: transverse colon polyp descending colon polyp Two <1cm polyps of the transverse and descending colon Timing of next colonoscopy will depend on pathology of the polyps.
--- NOTE | 2024-12-29 10:25 | BOWEL_PTH ---
PATIENT: Christiano Santos LOC: [facility] U#:[id number] AGE/SX: 44/F ROOM: RE12/29/[address]: Dominique Bragg MD : 1980 BED: DIS: 12/29/2024 SPEC #: [id number] RECD: 12/29/24 12:12 STATUS: NEIDA RESiomara #: [id number] HUONG: 12/29/24 10:[address]: Dominique Bragg DEPT: Surgical Specimen RECD BY: Kennedi Pozo ENTERED: 12/29/24 12:13 SP TYPE: Bowel OTHR DR: Paula Guthrie Tissues: 1 - BIOPSY BOWEL 2 - BIOPSY BOWEL Procedures: GROSS AND MICRO LEVEL 4 Comments: [id number]
[2024-12-29 10:37] VITALS: BP 131/79; PULSE 99; RESP 16; TEMP 36.3; O2SAT 96
[2024-12-29 11:02] VITALS: BP 139/83; PULSE 96; RESP 16; TEMP 36.3; O2SAT 98
--- NOTE | 2024-12-29 11:09 | W.ANESPOSTOP ---
Postoperative Evaluation Date, Time and Location Date Performed: 12/29/24 Time Performed: 11:09 Patient Location: Day Surgery Unit Vital Signs Most Recent Imported Vital Signs: Most Recent Vital Signs Temp Pulse Resp BP Pulse Ox 36.3 C L 96 H 16 139/83 98 12/29/24 11:02 12/29/24 11:02 12/29/24 11:02 12/29/24 11:02 12/29/24 11:02 Pain Score Most Recent Pain Score: Most Recent Pain Score Pain Level 0 12/29/24 11:02 Assessment Mental Status: Awake (Alert & Oriented to Patient Baseline) Airway and Respiratory Function: Patent airway with normal (patient baseline) respiratory exam Cardiovascular Function: Hemodynamically Stable Hydration Status: Adequately Hydrated Nausea & Vomiting: No Nausea or Vomiting Pain: Pt. Denies Any Pain Peripheral Nerve Block: Patient did not receive a nerve block
== END 2024-12-29 11:25 | disposition home or self-care (01) ==
LOC: SUR 08:26
PROVIDERS: PCP Physician Assistant Medical; Visit Provider Surgery
PROC: 0DJD8ZZ Inspection of Lower Intestinal Tract, Via Natural or Artificial Opening Endoscopic (ICD-10-PCS; CPT 45378; principal; 2024-12-29 10:30)
DX: Z12.11 Encounter for screening for malignant neoplasm of colon (principal); D12.3 Benign neoplasm of transverse colon; D12.4 Benign neoplasm of descending colon; I10 Essential (primary) hypertension; F17.200 Nicotine dependence, unspecified, uncomplicated
CPT/HCPCS: 45380; 88305; J2003; J2250; J2704

== ENCOUNTER 2025-04-03 00:51 | Outpatient (CLI) | payer OTHER, SELFPAY ==
[2025-04-03 15:38] LABS: Abs Immature Grans 0.06 10^3/uL (0.0-0.06); HCT 38.6 % (36.0-46.0); HGB 12.6 g/dL (11.2-15.7); Immature Grans % 0.5 %; MCH 29.3 pg (27.0-33.0); MCHC 32.6 % (32.0-36.0); MCV 90 fL (80-95); MPV 9.1 fL (8.0-11.0); Platelet Count 248 10^3/uL (130-400); RBC 4.30 10^6/uL (3.93-5.22); RDW 12.9 % (11.7-14.6); RDW-SD 42.1 fL; WBC 11.39 10^3/uL (4.4-10.8)
[2025-04-03 16:43] LABS: ALT 15 U/L (10-49); AST 15 U/L (<34); Albumin 4.5 g/dL (3.2-5.0); Alkaline Phosphatase 59 U/L (46-116); Anion Gap 8.2 mmol/L (3-11); BUN 11 mg/dL (9-23); Bilirubin, Total 0.2 mg/dL (0.2-1.2); CO2 27.8 mmol/L (20.0-31.0); Calcium 9.1 mg/dL (8.3-10.6); Chloride 108 mmol/L (98-107); Glucose 112 mg/dL (74-106); Potassium 3.3 mmol/L (3.5-5.1); Sodium 144 mmol/L (136-145); Total Protein 7.3 g/dL (5.7-8.2)
[2025-04-04 16:05] LABS: TSH (W/Ref FT4) 4.85 uIU/mL (0.55-4.78)
== END 2025-04-03 00:52 | disposition home or self-care (01) ==
PROVIDERS: Nurse Practitioner; PCP Physician Assistant Medical; Visit Provider Physician Assistant
DX: E03.9 Hypothyroidism, unspecified (principal); C50.911 Malignant neoplasm of unspecified site of right female breast; Z17.0 Estrogen receptor positive status [ER+]
CPT/HCPCS: 36415; 80053; 86003; 84439; 84443; 85025